=== PATIENT | female | born 1995 | race Hispanic/Latino ===

== ENCOUNTER 2019-01-16 20:41 | Observation (INO) | payer SELFPAY ==
[2019-01-16 20:46] VITALS: BP 120/75; PULSE 82; RESP 14; TEMP 37; O2SAT 100; BMI 27.4
--- NOTE | 2019-01-16 20:46 | ED_ITS ---
HPI - General Adult General Chief complaint: Seizure Stated complaint: had a seizure, swallowed dentures Time Seen by Provider: 01/16/19 20:43 Source: patient Mode of arrival: ambulatory Limitations: no limitations History of Present Illness HPI narrative: Patient is a 23-year-old female with a known history of seizures. she is here in the emergency department with who she states is her cousin. Her cousin states that the patient is visiting the area from [place]. Patient states she has a history of epilepsy. She does have a neurologist. She states that she is on Keppra For her seizures. She also states she has other episodes where she blacks out she states these are separate from her seizures. She states that her neurologist knows about these events. Patient states that her neurologist told her do not worry about them patient states that earlier today she had 1 of her normal grand mal seizures. During the event she swallowed a partial denture for her front 2 teeth. She states that after she woke from the seizure she went into the bathroom to make herself throw up because she knew that she swallowed the partial. She states she did throw up and there was stomach contents however no denture. She states there is no metal portion of the dentures. She states that portion has broken off. She states that is just plastic remaining. Since the event she has had bilateral upper chest pain. She states that it hurts for her to swallow. She states that she is taking her seizure medications but did not take them today. Related Data Home Medications Medication Instructions Recorded Confirmed ferrous gluconate 236 mg PO #0 05/27/16 lacosamide [Vimpat] 50 mg PO BID 01/17/19 01/17/19 levetiracetam [Keppra] 750 mg PO BID 01/17/19 01/17/19 Previous Rx's Medication Instructions Recorded sulfamethoxazole-trimethoprim 1 tab PO BID 5 Days #0 tab 05/27/16 Allergies Allergy/AdvReac Type Severity Reaction Status Date / Time No Known Drug Allergies Allergy Verified 01/16/19 20:49 Review of Systems Constitutional Denies fever(s) and Denies headache(s) Eyes Denies blurry vision ENT Ears, Nose, Mouth, and Throat: Denies vertigo and Denies headache(s) Comments: Hurts to swallow Cardiovascular Reports chest pain and Reports dyspnea Respiratory Denies cough and Reports dyspnea Gastrointestinal Gastrointestinal: Denies abdominal pain, Denies change in stool character and Denies vomiting Comments: States that it hurts to swallow Genitourinary Denies dysuria and Denies vaginal discharge Musculoskeletal Denies abnormal gait, Denies back pain, Denies myalgias and Denies arthralgias Integumentary/Breasts Denies rash Neurologic Denies abnormal gait, Denies behavioral changes, Denies vertigo and Denies headache(s) Psychiatric Denies behavioral changes Hematologic/Lymphatic Denies easy bleeding and Denies easy bruising Allergic/Immunologic Denies urticaria [facility] Medical History Epilepsy (Acute) Social History household members: family Smoking Status: Former smoker alcohol intake: current Social History household members: family Smoking Status: Former smoker alcohol intake: current Exam Initial Vital Signs Initial Vital Signs: Vital Signs Temperature 98.6 F 01/16/19 20:46 Pulse Rate 82 01/16/19 20:46 Respiratory Rate 14 01/16/19 20:46 Blood Pressure 120/75 01/16/19 20:46 Pulse Oximetry 100 01/16/19 20:46 Const General: cooperative, No comfortable (Uncomfortable), well developed, well groomed and No acute distress Orientation: alert, awake and oriented x3 HENMT Head: normal to inspection and normocephalic Teeth and gingiva: other (Missing 2 front teeth) Chest Chest: normal inspection of the chest Resp Effort & Inspection: normal respiratory effort Auscultation: clear to auscultation bilaterally Cardio Rate: regular rate Rhythm: regular rhythm Pulses: radial pulses present GI Inspection: non-distended Palpation: soft, No firm and No tender Skin Lesions: no lesions Rashes: no rashes Neuro General: alert, awake and oriented x3 Cognition: normal cognition Speech: speech normal Motor: muscle tone normal throughout Sensory Exam: no sensory deficits noted Extrem General: normal to inspection and capillary refill normal Psych Appearance: grossly normal and well kempt Scores GCS Jim coma scale eye opening: Spontaneous Jim coma scale verbal response: Orientated [place] coma scale motor response: Obey commands Jim coma scale total score: 15 Nexus Score for C-Spine Focal Neurologic deficit present: No Midline spinal tenderness present: No Altered level of conciousness present: No Intoxication present: No Distracting Injury Present: No Nexus Criteria for C-spine: 0 Course Orders Ordered: ED Orders 01/16/19 20:49 XR chest 1V Stat 01/16/19 20:59 XR abdomen 1V Stat 01/16/19 21:25 Basic Metabolic Panel Stat Complete Blood Count AUTO DIFF Stat Test Serum,Qual Stat Prolactin Stat 01/16/19 22:09 CT chest wo con Stat 01/17/19 01:09 Consult to General Surgery Routine Sodium Chloride (Normal Saline 0.9%) 1,000 mls @ 125 mls/hr IV CONT FATEMEH Last Admin: 01/17/19 02:21 Dose: 125 mls/hr Influenza Virus Vaccine (Flu Vaccine) 0.5 ml IM .ONCE ONE Stop: 01/17/19 09:01 Morphine Sulfate (Morphine) 2 mg IV Q4HR PRN PRN Reason: Pain, Mild (1-3) Ondansetron HCl (Zofran) 4 mg IV Q4HR PRN PRN Reason: Nausea And Vomiting Discontinued Medications Levetiracetam 1,500 mg/ Sodium (Chloride) 115 mls @ 460 mls/hr IV NOW ONE Stop: 01/17/19 00:52 Last Infusion: 01/17/19 02:00 Dose: 0 mls/hr Admin: 01/17/19 01:40 Dose: 460 mls/hr Morphine Sulfate (Morphine) 4 mg IV NOW ONE Stop: 01/17/19 00:10 Last Admin: 01/17/19 00:27 Dose: 4 mg Vital Signs - 8 hr 01/16/19 20:46 01/16/19 21:34 01/16/19 21:50 Temperature 98.6 F Pulse Rate 82 70 61 Respiratory Rate 14 17 14 Blood Pressure 120/75 Blood Pressure [Right Arm] 120/56 L 120/56 L Pulse Oximetry 100 100 100 01/16/19 23:00 01/17/19 01:00 Temperature Pulse Rate 60 66 Respiratory Rate 16 14 Blood Pressure Blood Pressure [Right Arm] 109/66 114/70 Pulse Oximetry 100 100 Medical Decision Making Lab Data Lab results reviewed: Yes I reviewed the patient's lab results. Result diagrams: 01/16/19 21:25 01/16/19 21:25 Lab Results 01/16/19 01/16/19 01/16/19 Range/Units 21:25 21:25 21:25 WBC 12.5 H (4.5-11.0) X10^3/uL RBC 4.75 (4.0-5.2) X10^6/uL Hgb 12.4 (12.0-16.0) g/dL Hct 39.6 (36-46) % MCV 83.2 (80-100) fL MCH 26.2 (26-34) PG MCHC 31.4 (30-36) % RDW 15.6 H (11.6-14.8) % Plt Count 248 (150-400) X10^3/uL Neut % (Auto) 73.7 (50-75) % Lymph % (Auto) 16.5 L (25-40) % [place] % (Auto) 8.4 (3-14) % Eos % (Auto) 0.9 L (2-4) % Baso % (Auto) 0.5 (0-2) % Neut # (Auto) 9200 H (3636-6164) /uL Lymph # (Auto) 2100 (6171-4247) /uL [place] # (Auto) 1100 H (0-900) /uL Eos # (Auto) 100 (0-450) /uL Baso # (Auto) 100 (0-100) /uL Sodium 144 (137-145) mmol/L Potassium 4.4 (3.4-5.1) mmol/L Chloride 111 H (98-107) mmol/L Carbon Dioxide 25 (22-32) mmol/L BUN 11 (7-17) mg/dL Creatinine 0.60 (0.52-1.04) mg/dL Estimated GFR > 60.0 (>60) mL/min BUN/Creatinine Ratio 18.3 (6-22) Glucose 109 H (70-100) mg/dL Calcium 9.0 (8.4-10.2) mg/dL Prolactin 37.7 H (3.0-18.6) ng/mL Serum , Qual Negative (Negative) Imaging Data Chest x-ray: Radiologist's impression: [address] [address] XRay Report Signed Patient: Roxy Scottnicola#: [id number] : 1995Acct:[id number] Age/Sex: 23 / FDate of Service: 01/16/19 Loc: ED Accession Number: [id number] Procedure: XR chest 1V Ordering Provider: Zachary Pickett D.O. PROCEDURE: XR CHEST 1V INDICATIONS: denture appliance stuck in chest TECHNIQUE: One view of the chest was acquired. COMPARISON: None. FINDINGS: Surgical changes and devices: None. Lungs and pleura: Lungs are clear. No pleural effusions or pneumothorax. Mediastinum: Mediastinal contours appear normal. Heart size is normal. Bones and chest wall: No suspicious bony lesions. Overlying soft tissues appear unremarkable. IMPRESSION: No acute cardiopulmonary findings. Dictated by: Deirdre Cuba M.D. on 01/16/2019 at 21:08 Approved by: Deirdre Cuba M.D. on 01/16/2019 at 21:08 Abdominal x-ray: Radiologist's impression: [place] [address] XRay Report Signed Patient: Roxy Scott#: [id number] : 1995Acct:[id number] Age/Sex: 23 / FDate of Service: 01/16/19 Loc: ED Accession Number: [id number] Procedure: XR abdomen 1V Ordering Provider: Zachary Pickett D.O. PROCEDURE: XR ABDOMEN 1V INDICATIONS: Eval for ingested foreign body TECHNIQUE: One view of the abdomen acquired. COMPARISON: None. FINDINGS: Surgical changes and devices: None. Bowel: Bowel gas pattern is normal. Soft tissues: No suspicious abdominal calcifications. Visualized solid organ contours appear normal in size. Bones: No suspicious bony lesions. IMPRESSION: No unexpected radiopaque foreign body visualized. No acute intra- abdominal findings. Dictated by: Deirdre Cuba M.D. on 01/16/2019 at 21:17 Approved by: Deirdre Cuba M.D. on 01/16/2019 at 21:18 CT scan - chest: Radiologist's impression: Read by Renal radiology Minimal hyperdense septations in the proximal esophagus, question mucosal injury or bleeding. This could be due to passage of a foreign body, not identified in the esophagus or upper abdomen. No evidence of esophageal perforation or mediastinal air. MDM Narrative Medical decision making narrative: Patient had no seizure activity here in the emergency department however she did have 2 episodes of her ?blacking out? 1 of which was witnessed by nursing staff. This was not associated with seizure-like activity. Patient states that this is not new for her. She did state that her neurologist knows about these events. I do not have her neurologist notes available for review. The chest x-ray in the abdominal x-ray shows no signs of ingested or aspirated foreign body. Is a somewhat difficult to interpret because she stated that there was no metal on the partial denture only a plastic material which I am concerned is not radiopaque. I did discuss the case with pulmonology at [facility] for concerns that the patient could potentially need a bronchoscopy given her reported shortness of breath. The milk delivery driver recommended a CT noncontrast of the chest to evaluate. This was obtained. Re sults of this showed the hyperdense septations in the proximal esophagus. I discussed this with Dr. Hines with General surgery who recommended obtaining a Gastrografin swallow. After consultation with on-call Radiology I am unable to obtain a Gastrografin swallow given the time of day. I discussed this again with General surgery and after this discussion will plan to admit the patient overnight to continue with airway watch. Will make the patient NPO with the plan of obtaining the Gastrografin swallow in the morning. This was ordered through the emergency department however the admitting provider will follow-up on the results of this. Patient was given 1500 mg of Keppra IV. She was informed of the admission to the hospital. She expressed understanding and agreement. Discharge Plan Departure Patient Disposition: Admitted as Observation Clinical Impression: Seizure Foreign body ingestion Qualifiers: Encounter type: initial encounter Qualified Code(s): T18.9XXA - Foreign body of alimentary tract, part unspecified, initial encounter Discharge Date/Time: 01/17/19 02:00 Interventions: ED Discharge Assessment Last Done: 01/17/19 01:49 Admit Date/Time: 01/17/19 01:13 Admit Provider: Mauricio Hines
--- NOTE | 2019-01-16 20:49 | DI.RAD.S_ITS ---
PROCEDURE: XR CHEST 1V INDICATIONS: denture appliance stuck in chest TECHNIQUE: One view of the chest was acquired. COMPARISON: None. FINDINGS: Surgical changes and devices: None. Lungs and pleura: Lungs are clear. No pleural effusions or pneumothorax. Mediastinum: Mediastinal contours appear normal. Heart size is normal. Bones and chest wall: No suspicious bony lesions. Overlying soft tissues appear unremarkable. IMPRESSION: No acute cardiopulmonary findings. Dictated by: Deirdre Cuba M.D. on 01/16/2019 at 21:08 Approved by: Deirdre Cuba M.D. on 01/16/2019 at 21:08
--- NOTE | 2019-01-16 20:59 | DI.RAD.S_ITS ---
PROCEDURE: XR ABDOMEN 1V INDICATIONS: Eval for ingested foreign body TECHNIQUE: One view of the abdomen acquired. COMPARISON: None. FINDINGS: Surgical changes and devices: None. Bowel: Bowel gas pattern is normal. Soft tissues: No suspicious abdominal calcifications. Visualized solid organ contours appear normal in size. Bones: No suspicious bony lesions. IMPRESSION: No unexpected radiopaque foreign body visualized. No acute intra-abdominal findings. Dictated by: Deirdre Cuba M.D. on 01/16/2019 at 21:17 Approved by: Deirdre Cuba M.D. on 01/16/2019 at 21:18
[2019-01-16 21:34] VITALS: BP 120/56; PULSE 70; RESP 17; O2SAT 100
[2019-01-16 21:37] LABS: Add Manual Diff / Slide Review NO; Basophils Absolute Auto 100 /uL (0-100); Basophils Percent Auto 0.5 % (0-2); Eosinophils Absolute Auto 100 /uL (0-450); Eosinophils Percent Auto 0.9 % (2-4); Hematocrit 39.6 % (36-46); Hemoglobin 12.4 g/dL (12.0-16.0); Lymphocytes Absolute Auto 2100 /uL (1100-4500); Lymphocytes Percent Auto 16.5 % (25-40); Mean Corpuscular HGB Conc 31.4 % (30-36); Mean Corpuscular Hemoglobin 26.2 PG (26-34); Mean Corpuscular Volume 83.2 fL (80-100); Monocytes Absolute Auto 1100 /uL (0-900); Monocytes Percent Auto 8.4 % (3-14); Neutrophils Absolute Auto 9200 /uL (1500-7000); Neutrophils Percent Auto 73.7 % (50-75); Platelet Count 248 X10^3/uL (150-400); Red Blood Cell Count 4.75 X10^6/uL (4.0-5.2); Red Cell Distribution Width 15.6 % (11.6-14.8); White Blood Cell Count 12.5 X10^3/uL (4.5-11.0)
[2019-01-16 21:38] LABS: HEMOLYSIS < 15 (0-50)
[2019-01-16 21:43] LABS: BUN Creatinine Ratio 18.3 (6-22); Blood Urea Nitrogen 11 mg/dL (7-17); Carbon Dioxide 25 mmol/L (22-32); Chloride 111 mmol/L (98-107); Estimated Glomerular Filt Rate > 60.0 mL/min (>60); Glucose 109 mg/dL (70-100); Potassium 4.4 mmol/L (3.4-5.1); Sodium 144 mmol/L (137-145)
[2019-01-16 21:50] VITALS: BP 120/56; PULSE 61; RESP 14; O2SAT 100
[2019-01-16 21:52] LABS: Pregnancy Test Serum,Qual Negative (Negative)
[2019-01-16 22:06] LABS: Prolactin 37.7 ng/mL (3.0-18.6)
--- NOTE | 2019-01-16 22:09 | DI.CT.S_ITS ---
PROCEDURE: CT CHEST WO CON INDICATIONS: Eval for possible aspirated foreign body TECHNIQUE: Noncontrast 5 mm thick sections acquired from the pulmonary apices to the posterior costophrenic angles. 7 mm thick coronal and sagittal MIP reformats were then acquired. For radiation dose reduction, the following was used: automated exposure control, adjustment of mA and/or kV according to patient size. COMPARISON: [facility], CR, XR CHEST 1V, 01/16/2019, 20:57. FINDINGS: Image quality: Excellent. Lungs and pleura: No acute air space opacities. No pleural effusions or pneumothorax. Central and peripheral airways are patent and normal in caliber. Mediastinum: Heart size is normal. No pericardial effusion. No mediastinal adenopathy by size criteria. Thoracic aorta and central pulmonary arteries are normal in size. Esophagus is normal in caliber and contains high density material at the junction of the upper and middle thirds of the esophagus, best seen centered on series 2 image 41. No hiatal hernia. Bones and chest wall: No suspicious bony lesions. No vertebral body compression fractures. No axillary or supraclavicular adenopathy by size criteria. Thyroid gland is not well-seen by this noncontrast technique. Abdomen: Visualized upper abdominal solid organs and bowel loops appear normal in the absence of contrast. IMPRESSION: The high density material seen within the junction of the [id number] thirds of the esophagus may represent the reported ingested foreign body and followup with esophagram is scheduled for this morning. Dictated by: Kurt Johnson M.D. on 01/17/2019 at 8:10 Approved by: Kurt Johnson M.D. on 01/17/2019 at 8:13
--- NOTE | 2019-01-16 22:40 | PC.NURSE ---
Pt having another blackout. Episode lasted approximately 4 min until she was completely recovered and back to baseline. She was incontinent of urine and kicking her legs around trying to remove her IV and pulse oximeter. Eyes were open and she was saying ew and saying words that did not make sense. Unable to answer questions about her children's names and birthdays during episode. Notified provider. No evidence of injury or airway compromise. Pt's bed is visible from nurses station and family is at bedside. Seizure precautions remain in place.
[2019-01-16 23:00] VITALS: BP 109/66; PULSE 60; RESP 16; O2SAT 100
[2019-01-17] VITALS (21 sets, daily range): BP systolic 84–125; BP diastolic 45–78; PULSE 53–91; RESP 11–18; TEMP 36–36.8; O2SAT 95–100; BMI 27.4; BMI 27.8
[2019-01-17] MEDS: MORPHINE 4 MG/ML INJ IV (00:27)
[2019-01-17] MEDS: levETIRAcetam 1,500 MG in SODIUM CHLORIDE 0.9% 100 ML 460 ML IV (01:40)
[2019-01-17] MEDS: SODIUM CHLORIDE 0.9% 1,000 ML 125 ML IV ×3 (02:21→10:49)
[2019-01-17] MEDS: ONDANSETRON 4 MG/2 ML INJ IV ×2 (02:35→10:10)
--- NOTE | 2019-01-17 02:51 | PC.ADMIT ---
Addendum entered by Kendra Shi R.N. 01/17/19 05:59: States pain is 6/10 currently and tolerable. Has not voided since admission but states she was incontinent during a black out while down in ER earlier. Addendum entered by Kendra Shi R.N. 01/17/19 04:45: States it hurts to swallow and rates severity as 8/10 in chest; medicated with Morphine and warm blanket applied. Original Note: Patient admitted to room 212 from ER per stretcher; cousin accompanied patient. Is alert and oriented. Breath sounds CTA but diminished at bases; RA sat 96%. Denies SOB. Is having chest pain related to possible foreign body (reports she swallowed her partial during recent seizure). Pain is 6/10 at rest but increases to 8/10 with deep breathing; had Morphine in ER at 0030 and informed patient she can have q4h. Verbalizes pain is tolerable. HRR; on telemetry and reading upon admission was SR. Complains of nausea so medicated with Zofran. BT present and abdomen is soft. Denies dysuria, frequency or urgency. Able to move self in bed. Seizure pads placed on bed and patient instructed to call for assistance when needing to get out of bed. Reports recent fall during a recent seizure so fall risk score is high and bed alarm is activated; patient verbalizes understanding. Skin is without bruising, redness, rashes or open areas. Oriented to bed controls and call light. Informed she is NPO and provided glycerin swabs for mouth moisture. [address] Admission Note: The patient,Roxy Scott,23 y/o, was given written information regarding hospital policies, unit procedures and contact persons. Patient's smoking status: Former smoker. Vital Signs - 8 hr 01/16/19 20:46 01/16/19 21:34 01/16/19 21:50 Temperature 98.6 F Pulse Rate 82 70 61 Respiratory Rate 14 17 14 Blood Pressure 120/75 Blood Pressure [Right Arm] 120/56 L 120/56 L Pulse Oximetry 100 100 100 01/16/19 23:00 01/17/19 01:00 01/17/19 02:05 Temperature 97.7 F Pulse Rate 60 66 80 Respiratory Rate 16 14 18 Blood Pressure 125/75 Blood Pressure [Right Arm] 109/66 114/70 Pulse Oximetry 100 100 96
[2019-01-17] MEDS: MORPHINE 2 MG/ML INJ IV (04:41)
--- NOTE | 2019-01-17 07:06 | DI.RAD.S_ITS ---
PROCEDURE: FL BARIUM SWALLOW INDICATIONS: MUST BE Gastrographin - eval for esoph perf, forign body COMPARISON: [facility], CT, CT CHEST WO MAC, 01/16/2019, 22:15. FINDINGS: Function: There is normal esophageal peristalsis. No elicited gastroesophageal reflux. There is a foreign body within the upper esophagus near the junction of the upper and middle thirds, with a craniocaudad length of approximately 3.7 cm and a transverse dimension of up to 1.5 cm. This is non-mobile. It is not visible on the initial fluoroscopic imaging through the same area and therefore does not appear to contain metallic components. Morphology: Air-contrast images demonstrate normal mucosal morphology. Single contrast views show no esophageal strictures, extrinsic mass effects, or diverticula. Limited images of the stomach demonstrate normal appearance. IMPRESSION: 1. Foreign body within the upper esophagus near the junction of the upper and middle thirds. This is the same area of the esophagus where a foreign body is visible on CT scanning. It has no internal metallic components.it is quite radiolucent and therefore not visible on plain film imaging. 2. No sign of esophageal perforation. No aspiration seen. Esophageal motility is normal. Dictated by: Kurt Johnson M.D. on 01/17/2019 at 9:01 Approved by: Kurt Johnson M.D. on 01/17/2019 at 9:05
--- NOTE | 2019-01-17 08:18 | PC.NURSE ---
Patient was picked up for FL barium swallow test. Patient reports she is tired but denies pain or complaint at this time.
[2019-01-17] MEDS: HYDROMORPHONE 2 MG INJ 1 MG IV (09:05)
--- NOTE | 2019-01-17 10:07 | P.HP_ITS ---
History of Present Illness Date Patient Seen: 01/17/19 Time Patient Seen: 06:30 Chief complaint: had a seizure, swallowed dentures Narrative: 23-year-old woman vacationing from [place] up presents after swallowing a partial denture. Patient has a history of a seizure disorder and infrequently has complex generalized seizure activity. At approximately 7:00 p.m. last night patient had a seizure and swallowed her partial denture which contains 4 teeth. Upon recovering she felt mid esophageal pain which was worsened with swallowing. She was able to manage her secretions however. Unfortunately there is no metallic components to her partial denture. Initial x-ray in the emergency depa rtment failed to demonstrate the dentures location however CT scan demonstrated material in the midesophagus just above the level of the aortic arch consistent with the site of patient discomfort. Careful inspection of the imaging revealed no air within the mediastinum and intact fat planes around the esophagus. Patient then went on to receive a Gastrografin swallow -this confirmed the absence of an esophageal perforation. There was a persistent filling at the same area consistent with a foreign body occupying the lumen. This morning patient continues to field discomfort -and their are plans for EGD for extraction. No further seizure activity noted Patient History Medical History (Updated 01/17/19 @ 10:03 by Mauricio Hines MD) Anemia (Acute) Epilepsy (Acute) Social History household members: family Smoking Status: Former smoker alcohol intake: current Family & Social History Social History: household members family Prior Living Arrangements House Safety & Behavioral: Feels Safe in Current Yes Environment Been Physically Hurt or No Threatened By a Person Suicidal Ideation Description None Tobacco & Substance use: Tobacco type cannabis/marijuana Smoking Status Former smoker alcohol intake current alcohol intake frequency a few times a week Substance Use Type marijuana Meds Home Medications Medication Instructions Recorded Confirmed Type lacosamide [Vimpat] 50 mg PO BID 01/17/19 01/17/19 History levetiracetam [Keppra] 750 mg PO BID 01/17/19 01/17/19 History Allergies Allergy/AdvReac Type Severity Reaction Status Date / Time No Known Drug Allergies Allergy Verified 01/16/19 20:49 Review of Systems Constitutional Constitutional: Denies fever(s) Eyes Eyes: Denies bulging eyes ENT Ears, Nose, Mouth, and Throat: No lip swelling Cardiovascular Cardiovascular: Denies generalize swelling Respiratory Respiratory: Denies stridor Gastrointestinal Gastrointestinal: Denies coffee ground emesis Musculoskeletal Musculoskeletal: Denies loss of height Integumentary/Breasts Skin/Breast: Denies wounds Neurologic Neurologic: Denies abnormal speech and Denies confusion Psychiatric Psychiatric: Denies confusion Endocrine Endocrine: Denies deepening of the voice Hematologic/Lymphatic Hematologic/Lymphatic: Denies lymphadenopathy Allergic/Immunologic Allergic/Immunologic: Denies lip swelling Exam Vital Signs (past 8 hours): - 01/17/19 02:05 01/17/19 04:42 01/17/19 07:40 Temperature 97.7 F 97.6 F 98.2 F Pulse Rate 80 53 L 60 Respiratory Rate 18 18 16 Blood Pressure 125/75 100/63 111/78 Pulse Oximetry 96 98 100 01/17/19 09:31 Temperature 97.5 F L Pulse Rate 68 Respiratory Rate 16 Blood Pressure 117/75 Pulse Oximetry 100 Oxygen Delivery Method Room Air Const General: cooperative and healthy appearing Orientation: alert [facility] Head: normal to inspection Nose: nares normal Mouth: oral mucosae normal and lip normal Eyes Eyelids: eyelids normal Conjunctivae: conjunctivae normal Sclera: sclerae normal Neck Neck: supple and other (No thyromegally) Chest Chest: other (LCTAB , regular respiratory effort) Cardio Rhythm: regular rhythm Heart Sounds: S1 normal, S2 normal, no gallops, no murmurs and no rubs GI Other: Abdomen soft nontender nondistended Skin General: no rashes or lesions noted Neuro General: alert and awake Psych Appearance: grossly normal Affect: normal affect Objective Labs Result Diagrams: 01/16/19 21:25 01/16/19 21:25 Labs: Laboratory Results - last 24 hr 01/16/19 01/16/19 01/16/19 21:25 21:25 21:25 WBC 12.5 H RBC 4.75 Hgb 12.4 Hct 39.6 MCV 83.2 MCH 26.2 MCHC 31.4 RDW 15.6 H Plt Count 248 Neut % (Auto) 73.7 Lymph % (Auto) 16.5 L [place] % (Auto) 8.4 Eos % (Auto) 0.9 L Baso % (Auto) 0.5 Neut # (Auto) 9200 H Lymph # (Auto) 2100 [place] # (Auto) 1100 H Eos # (Auto) 100 Baso # (Auto) 100 Sodium 144 Potassium 4.4 Chloride 111 H Carbon Dioxide 25 BUN 11 Creatinine 0.60 Estimated GFR > 60.0 BUN/Creatinine Ratio 18.3 Glucose 109 H Calcium 9.0 Prolactin 37.7 H Serum , Qual Negative Assessment & Plan Assessment & Plan narrative: 23-year-old woman with partial denture foreign body impacted just above the level of the aortic arch within the midportion of the esophagus. She does not have an esophageal perforation as demonstrated by Gastrografin swallow as well as chest CT. Plan to remove via EGD with sedation. Patient has a somewhat elevated risk of aspiration given her recent swallow study with Gastrografin, however given the risk of erosion into the esophagus I do not think it is prudent to wait further. Risks of procedure including over sedation, aspirate, esophageal injury all discussed All questions answered Patient ready to proceed Quality VTE Deep Vein Thrombosis/Pulmonary Embolism Present on Admission: No
[2019-01-17] MEDS: diphenhydrAMINE 50 MG/ML VIAL IV (10:53)
[2019-01-17] MEDS: METOCLOPRAMIDE 10 MG/2 ML INJ IV (10:54)
[2019-01-17] MEDS: fentaNYL 250 MCG/5 ML INJ IV (10:55)
[2019-01-17] MEDS: MIDAZOLAM 5 MG/5 ML VIAL IV (10:56)
[2019-01-17] MEDS: TETRACAINE/BENZOCAINE/BUTAMBEN (CETACAINE) BOTTLE 1 SPRAY TOP (10:57)
--- NOTE | 2019-01-17 11:12 | CM.DANOTE ---
Addendum entered by Nicol Steele LPN 01/17/19 14:01: Pt just arrived to the floor. She is lying with eyes closed. Dr. Huber Hines was in process of updating KAREN Flores re the specifics of the procedure. He has ok'd pt for d/c later this afternoon. KAREN Flores confirms that Gopi will be here to take her home after work. He is expected about 1530. Mark notes that pt had expressed no concerns re the plan to go home later today but for now she is resting. Original Note: Discharge Planning/Care Management DCP: assessment: case received, EMR reviewed and went to room to check in with pt. Found that pt has already been taken to surgery for the EGD with plan to extract partial denture from esophagus. Pt is a 23 year old female who admitted early this morning after having a seizure and realizing that she swallow denture material. MRI showed this was stuck in the upper esophagus. Surgeon: Dr. Huber Hines PCP: unknown but documentation states that pt sees a neurologist in [place] for her his of seizure disorder and is on medication for same. Her insurance is being sorted out by [facility]. Pt was seen at ER 2x in 2016 with seizures. Prime is listed but unclear if active. [facility] also mentions a medicaid plan from [place]. Pt per report is here visiting family and her cousin Gopi Perez lists his cell: [phone]. Will check in later when procedure is completed and follow prn for any needs at d/c. CM Discharge Assessment Start: 01/17/19 11:11 Freq: Status: Active Protocol: Document 01/17/19 11:11 ITV (Rec: 01/17/19 11:12 ITV [id number]) Discharge Planning Assessment Advance Directives? No History Provided By Medical Record Prior Living Arrangements House Household Members family Whiteboard Updated in Patient Room with Yes name and ext. # of Ski Topper Review Status In Process
--- NOTE | 2019-01-17 11:43 | P.OP.ENDO_ITS ---
Operative Date/Time/Diagnoses Date of procedure: 01/17/19 Time of procedure: 11:29 Pre-op diagnosis: Impacted esophageal foreign body Post-op diagnosis: same Procedure & Clinicians Study performed: EGD Removal of esophageal foreign body Same procedure as scheduled: Yes Indications: 23-year-old female with a history of seizure disorder in the setting of a generalized complex seizure yesterday evening she swallowed the upper partial denture containing 4 upper incisors. She felt a foreign body sensation or midesophagus. Barium swallow confirmed absence of esophageal perforation but notable filling defect in the midesophagus just superior to the aortic arch. Surgeon: Mauricio Hines Procedure Notes SCOAP/Timeout: completed Procedure in detail: Patient was brought to the endoscopy suite. Her posterior pharynx with anesthetized with benzocaine spray. She was given 8 of Zofran and 10 of Reglan both IV. She was then sedated with initially 4 mg of midazolam and 50 of fentanyl. A bite block was placed. Without difficulty the endoscope was passed into the proximal esophagus. At the midesophagus the aspirated foreign body consistent with a partial denture was identified. This was snared. The endoscope was then slowly withdrawn. However at the level of the cricopharyngeus patient began to cough. She was sedated with additional 4 mg of midazolam and 50 mcg fentenyl. This was still not adequate to safely passed the form body through her upper airway -due to cough. An additional 50 of fentanyl was given. At this point she became apneic -the foreign body was released/had already come out of the snare within the proximal esophagus. An oral airway was placed. Mask ventilation was started. Patient was easy to ventilate and sats came up readily. We continued bag vast ventilate her without difficulty. Anesthesia was called. We discussed that given the need for fairly significant sedation to bring the large object through her hypopharynx and recent episode of apnea -ETT would be extremely helpful. I considered pushing the foreign body into the stomach -but given its size I was concerned for a later ileal obstruction. Anesthesiology graciously intubated the patient without difficulty, she was started on propofol drip. Anesthesia involvement was essential given the balance between apnea and adequate sedation to remove the foreign body through the highly sensitive area of the hypopharynx and cricopharyngeal muscle. The EGD was then again passed into the esophagus no foreign body was identified however upon entry into the stomach was in the gastric body. With some difficul ty given the irregular nature of the denture it was snared. We then carefully withdrew the scope with snared denture up through the airway. As soon as we had past cricopharyngeus and were in the hypopharynx this snare released. The hypopharynx was searched endoscopically as well as using intubating Jason in Ying blades. The denture was not identified. It seemed likely that it had been pushed into the nasopharynx. The nasogastric tube was then advanced down both nares while viewing the oropharynx with the endoscope. The denture came into view and was seated at the level of the epiglottis. Using a mac 4 blade a direct view was taken of the hypopharynx and the denture was grab successfully with a [place] forceps and removed for the patient. The denture was inspected it was intact. The esophagus was rescoped -there were some mucosal abrasions but no significant damage to esophagus. Patient was extubated without incident Scope withdrawal time: Na Impression: Impacted foreign body within the midportion of the esophagus -now removed Plan for aftercare: PACU and then to floor No need for further EGD Follow up: as needed Disposition: Acute Care
--- NOTE | 2019-01-17 12:58 | SUR.PHASEI ---
Partial with patient to room and nurse (Mark) has taken possesion.
--- NOTE | 2019-01-17 13:30 | PM.PN.1 ---
Subjective Date Patient Seen: 01/17/19 Time Patient Seen: 13:30 Interval history: Feeling well after successful extraction of midesophageal impacted foreign body Minimal throat Esophageal/mid chest discomfort much improved Exam Vital Signs (past 8 hours): - 01/17/19 07:40 01/17/19 09:31 01/17/19 11:39 Temperature 98.2 F 97.5 F L 97.3 F L Pulse Rate 60 68 88 Respiratory Rate 16 16 16 Blood Pressure 111/78 117/75 102/63 Pulse Oximetry 100 100 99 01/17/19 11:44 01/17/19 11:49 01/17/19 11:54 Temperature Pulse Rate 90 84 84 Respiratory Rate 14 14 12 Blood Pressure 95/58 L 103/62 99/64 Pulse Oximetry 98 98 95 01/17/19 11:59 01/17/19 12:04 01/17/19 12:11 Temperature 96.8 F L Pulse Rate 76 72 71 Respiratory Rate 12 14 11 L Blood Pressure 98/60 99/55 L 84/45 L Pulse Oximetry 100 98 100 01/17/19 12:13 01/17/19 12:18 01/17/19 12:24 Temperature 97.1 F L Pulse Rate 63 68 68 Respiratory Rate 13 12 14 Blood Pressure 88/48 L 90/51 L 90/50 L Pulse Oximetry 100 100 99 01/17/19 12:29 01/17/19 12:55 Temperature 98.0 F Pulse Rate 64 61 Respiratory Rate 14 14 Blood Pressure 92/53 L 101/59 L Pulse Oximetry 100 99 Oxygen Delivery Method Room Air Narrative Exam Narrative: Resting well after recent endoscopy Objective Labs Result Diagrams: 01/16/19 21:25 01/16/19 21:25 Labs: Laboratory Results - last 24 hr 01/16/19 01/16/19 01/16/19 21:25 21:25 21:25 WBC 12.5 H RBC 4.75 Hgb 12.4 Hct 39.6 MCV 83.2 MCH 26.2 MCHC 31.4 RDW 15.6 H Plt Count 248 Neut % (Auto) 73.7 Lymph % (Auto) 16.5 L [place] % (Auto) 8.4 Eos % (Auto) 0.9 L Baso % (Auto) 0.5 Neut # (Auto) 9200 H Lymph # (Auto) 2100 [place] # (Auto) 1100 H Eos # (Auto) 100 Baso # (Auto) 100 Sodium 144 Potassium 4.4 Chloride 111 H Carbon Dioxide 25 BUN 11 Creatinine 0.60 Estimated GFR > 60.0 BUN/Creatinine Ratio 18.3 Glucose 109 H Calcium 9.0 Prolactin 37.7 H Serum , Qual Negative Assessment & Plan Assessment & Plan narrative: 23-year-old female status post endoscopic removal of partial denture from midportion esophagus. Now well Okay to [place] home Quality VTE Deep Vein Thrombosis/Pulmonary Embolism Present on Admission: No
--- NOTE | 2019-01-17 14:12 | PC.NURSE ---
No longer flu season per charge gang weigher, not available.
--- NOTE | 2019-01-17 14:32 | PC.NURSE ---
Patient without complaints, denies pain. up to bathroom without difficulty. declined tylenol. VSS. Waiting for friend to pick her up for discharge.
--- NOTE | 2019-01-17 15:36 | PC.NURSE ---
Discharge instructions reviewed with patient, she states understanding and has no further questions or concerns at this time. Evening shift will complete discharge as patient is waiting for her friend to pick her up. She's tolerating liquids, voided, and denies pain at this time. Seizure and fall precautions maintained. Patient instructed to report questions or concerns to her physician and follow up as needed. Patient states understanding not to wear her denture partial until repaired and fitting correctly.
--- NOTE | 2019-01-17 16:59 | PC.NURSE ---
1700- Pt's sig nif other is here to take pt home. Pt has denture, along with all belongings. All DC instructions have been gone over with pt, and pt verbally reports understanding. VSS. No concerns or questions at this time. Wheelchair to downstairs to exit after eating dinner.
== END 2019-01-17 17:02 | disposition home or self-care (01) ==
LOC: ED 01-17 00:51 → AC 01-17 01:14
PROVIDERS: Admitting Provider Surgery; Emergency Provider Emergency Medicine; Visit Provider Surgery
PROC: 0DJ08ZZ Inspection of Upper Intestinal Tract, Via Natural or Artificial Opening Endoscopic (ICD-10-PCS; CPT 43235; principal; 2019-01-17 09:45)
DX: T18.9XXA Foreign body of alimentary tract, part unspecified, initial encounter (principal); G40.909 Epilepsy, unspecified, not intractable, without status epilepticus; D64.9 Anemia, unspecified
CPT/HCPCS: 43247; 36591; 71045; 71250; 74018; 74220; 80048; 84146; 84703; 85025; 96361; 96365; 96376; 99219; 99283; 99284; G0378; J0330; J1170; J1200; J1953; J2250; J2270; J2405; J2704; J2765; J3010

== ENCOUNTER 2019-02-04 12:12 | Inpatient (IN) | payer SELFPAY ==
[2019-01-17 02:00] VITALS: BMI 27.4
[2019-02-04] VITALS (13 sets, daily range): BP systolic 97–131; BP diastolic 56–82; PULSE 68–86; RESP 12–20; TEMP 35.4–36.9; O2SAT 97–100; BMI 27.6; BMI 27.3
--- NOTE | 2019-02-04 12:37 | DI.RAD.S_ITS ---
PROCEDURE: XR CHEST 1V INDICATIONS: altered mental status TECHNIQUE: One view of the chest was acquired. COMPARISON: [facility], CR, XR CHEST 1V, 01/16/2019, 20:57. FINDINGS: Surgical changes and devices: None. Lungs and pleura: Lungs are clear. No pleural effusions or pneumothorax. Mediastinum: Mediastinal contours appear normal. Heart size is normal. Bones and chest wall: No suspicious bony lesions. Overlying soft tissues appear unremarkable. IMPRESSION: No acute cardiopulmonary process is evident. Dictated by: Jaquan Rose M.D. on 02/04/2019 at 13:02 Approved by: Jaquan Rose M.D. on 02/04/2019 at 13:05
[2019-02-04 12:49] LABS: Add Manual Diff / Slide Review NO; Basophils Absolute Auto 100 /uL (0-100); Basophils Percent Auto 0.8 % (0-2); Eosinophils Absolute Auto 0 /uL (0-450); Eosinophils Percent Auto 0.1 % (2-4); Hematocrit 39.9 % (36-46); Hemoglobin 13.3 g/dL (12.0-16.0); Lymphocytes Absolute Auto 1600 /uL (1100-4500); Lymphocytes Percent Auto 18.4 % (25-40); Mean Corpuscular HGB Conc 33.4 % (30-36); Mean Corpuscular Hemoglobin 26.8 PG (26-34); Mean Corpuscular Volume 80.3 fL (80-100); Monocytes Absolute Auto 1100 /uL (0-900); Monocytes Percent Auto 12.4 % (3-14); Neutrophils Absolute Auto 6000 /uL (1500-7000); Neutrophils Percent Auto 68.3 % (50-75); Platelet Count 279 X10^3/uL (150-400); Red Blood Cell Count 4.97 X10^6/uL (4.0-5.2); Red Cell Distribution Width 15.2 % (11.6-14.8); White Blood Cell Count 8.8 X10^3/uL (4.5-11.0)
--- NOTE | 2019-02-04 12:54 | ED.SEIZURE ---
HPI - Seizure General Chief Complaint: Seizure Stated Complaint: Altered mental state, headache,seizures Time Seen by Provider: 02/04/19 12:41 Source: patient Mode of arrival: ambulatory Limitations: no limitations History of Present Illness HPI Narrative: Patient is a 23-year-old female with history of epilepsy presenting with altered mental status. She actually had a seizure on this 7th and she actually swallowed some dentures. Her cousin is with her he states that her last dose of Keppra was about a week ago and she has had 2 seizures this week. He has noted some odd behavior this week as well she seems to be more paranoid she states that she is hearing voices she says sometimes they tell her to kill herself but there is no specific plans. She really will look at me while I am talking to her. Cousin took a video of her paranoid it yesterday. Apparently she feels like someone is after her but this particular person lives in [place] and is not here. MD complaint: seizure and other (Paranoia) Seizure History: known seizure disorder Place: home Related Data Home Medications Medication Instructions Recorded Confirmed Vimpat 50 mg PO BID 01/17/19 02/04/19 levetiracetam [Keppra] 1,500 mg PO BID 01/17/19 02/04/19 ibuprofen 1 dose PO PRN PRN 02/04/19 02/04/19 Allergies Allergy/AdvReac Type Severity Reaction Status Date / Time No Known Drug Allergies Allergy Verified 01/16/19 20:49 Review of Systems Review of Systems ROS Unobtainable: All systems reviewed & are unremarkable except as noted in HPI and below Constitutional Denies chills, Denies fever(s), Denies lethargy and Denies weakness Eyes Denies change in vision, Denies eye discharge, Denies irritation and Denies loss of vision Cardiovascular Denies chest pain, Denies irregular heart rhythm, Denies lightheadedness, Denies palpitations, Denies dyspnea, Denies dyspnea on exertion and Denies orthopnea Respiratory Denies cough, Denies dyspnea, Denies dyspnea on exertion and Denies wheezing Gastrointestinal Gastrointestinal: Denies abdominal pain, Denies change in bowel habits, Denies diarrhea, Denies nausea and Denies vomiting Genitourinary Denies hematuria, Denies flank pain, Denies urinary incontinence and Denies urinary urgency Musculoskeletal Denies back pain, Denies muscle weakness, Denies numbness and Denies tingling Integumentary/Breasts Denies pruritus, Denies erythema, Denies rash and Denies wounds Neurologic Reports behavioral changes, Reports confusion, Denies loss of vision, Reports memory loss, Denies numbness, Reports convulsions, Reports seizure-like activity, Denies tingling and Denies weakness Psychiatric Reports behavioral changes, Reports confusion, Reports auditory hallucinations, Reports irritability, Reports memory loss, Reports mood swings and Reports hallucinations Endocrine Denies palpitations Allergic/Immunologic Denies wheezing [facility] Medical History Anemia (Acute) Epilepsy (Acute) Social History household members: family Smoking Status: Former smoker alcohol intake: current Social History household members: family Smoking Status: Former smoker alcohol intake: current Exam Initial Vital Signs Initial Vital Signs: Vital Signs Pulse Rate 80 02/04/19 12:25 Respiratory Rate 12 02/04/19 12:25 Blood Pressure 131/82 02/04/19 12:25 Pulse Oximetry 100 02/04/19 12:25 GENERAL: Well-appearing, well-nourished and in no acute distress. HEENT: Head atraumatic,EOMI, pupils reactive, face symmetric, moist mucous membranes CARDIOVASCULAR: Regular rate and rhythm without murmurs, rubs or gallops. RESPIRATORY: Breath sounds equal bilaterally, no wheezes rales or rhonchi. ABDOMEN: Soft, nontender. Normoactive bowel sounds all 4 quadrants. No guarding or rebound. : No CVA tenderness EXTREMITIES: Normal range of motion, no clubbing or edema. Neurovascularly intact NEUROLOGICAL: Alert and oriented x4.Normal gait and speech. Cranial nerves II through XII grossly intact. Waste Baler strength equal bilaterally SKIN: Warm, dry, no laceration, no petechiae, no rashes or lesions. Psych Appearance: well kempt Mood: irritable mood Attitude: guarded, avoids eye contact and refuses to answer Thought Process: flight of ideas and illogical Thought Content: hallucinations Judgment: poor Course Orders Ordered: ED Orders 02/04/19 11:40 Ammonia (NH3) Stat Complete Blood Count AUTO DIFF Stat Comprehensive Metabolic Panel Stat Test Serum,Qual Stat Procalcitonin Stat Prolactin Stat 02/04/19 12:22 EKG-12 Lead Stat 02/04/19 12:37 XR chest 1V Stat 02/04/19 13:07 CT head/brain wo con Stat 02/04/19 13:22 Consult to Jewel Lathe Operator Stat 02/04/19 13:28 Urine Drug Screen, Rapid Stat Urine Microscopic Stat Discontinued Medications Sodium Chloride (Normal Saline 0.9%) 1,000 mls @ 1,000 mls/hr IV BOLUS ONE Stop: 02/04/19 13:41 Last Infusion: 02/04/19 14:35 Dose: 0 mls/hr Admin: 02/04/19 12:59 Dose: 1,000 mls/hr Levetiracetam 1,000 mg/ Sodium (Chloride) 110 mls @ 440 mls/hr IV NOW ONE Stop: 02/04/19 13:09 Last Infusion: 02/04/19 14:35 Dose: 0 mls/hr Admin: 02/04/19 13:37 Dose: 440 mls/hr Ibuprofen (Advil) 800 mg PO NOW ONE Stop: 02/04/19 19:31 Last Admin: 02/04/19 19:40 Dose: 800 mg Levetiracetam (Keppra) 500 mg PO NOW ONE Stop: 02/04/19 19:31 Last Admin: 02/04/19 19:40 Dose: 500 mg Vital Signs - 8 hr 02/04/19 12:25 02/04/19 12:27 02/04/19 13:00 Temperature 98.5 F Pulse Rate 80 86 78 Respiratory Rate 12 20 16 Blood Pressure 131/82 Blood Pressure [Right Arm] 131/82 123/78 Pulse Oximetry 100 100 97 02/04/19 13:51 02/04/19 13:53 02/04/19 14:00 Temperature Pulse Rate 78 Respiratory Rate 16 Blood Pressure Blood Pressure [Right Arm] 121/71 121/72 127/80 Pulse Oximetry 99 100 02/04/19 17:40 02/04/19 18:25 02/04/19 19:35 Temperature 97.9 F Pulse Rate 77 72 68 Respiratory Rate 18 20 16 Blood Pressure Blood Pressure [Right Arm] 105/57 L 116/72 97/56 L Pulse Oximetry 100 98 MDM - Seizure Lab Data Attestation: I reviewed the patient's lab results. Result diagrams: 02/04/19 11:40 02/04/19 11:40 Lab Results 02/04/19 02/04/19 02/04/19 Range/Units 11:40 11:40 11:40 WBC 8.8 (4.5-11.0) X10^3/uL RBC 4.97 (4.0-5.2) X10^6/uL Hgb 13.3 (12.0-16.0) g/dL Hct 39.9 (36-46) % MCV 80.3 (80-100) fL MCH 26.8 (26-34) PG MCHC 33.4 (30-36) % RDW 15.2 H (11.6-14.8) % Plt Count 279 (150-400) X10^3/uL Neut % (Auto) 68.3 (50-75) % Lymph % (Auto) 18.4 L (25-40) % Barnes % (Auto) 12.4 (3-14) % Eos % (Auto) 0.1 L (2-4) % Baso % (Auto) 0.8 (0-2) % Neut # (Auto) 6000 (3879-9192) /uL Lymph # (Auto) 1600 (0669-8283) /uL Barnes # (Auto) 1100 H (0-900) /uL Eos # (Auto) 0 (0-450) /uL Baso # (Auto) 100 (0-100) /uL Sodium 148 H (137-145) mmol/L Potassium 3.2 L (3.4-5.1) mmol/L Chloride 106 (98-107) mmol/L Carbon Dioxide 25 (22-32) mmol/L BUN 10 (7-17) mg/dL Creatinine 0.70 (0.52-1.04) mg/dL Estimated GFR > 60.0 (>60) mL/min BUN/Creatinine Ratio 14.3 (6-22) Glucose 112 H (70-100) mg/dL Calcium 10.0 (8.4-10.2) mg/dL Total Bilirubin 0.6 (0.2-1.3) mg/dL AST 31 (14-36) IU/L ALT 17 (9-52) IU/L Alkaline Phosphatase 93 (38-126) U/L Ammonia < 9.0 L (9-30) umol/L Total Protein 9.1 H (6.3-8.2) g/dL Albumin 4.9 (3.5-5.0) g/dL Globulin 4.2 H (1.7-4.1) g/dL Albumin/Globulin Ratio 1.2 (1.0-2.8) Procalcitonin (<0.5) ng/mL Prolactin (3.0-18.6) ng/mL Serum , Qual (Negative) Urine RBC (0-5/HPF) Urine WBC (0-5/HPF) Ur Squamous Epith Cells (0-5/HPF) Urine Bacteria (None) Urine Mucus (Negative) Ur Culture Indicated? Urine Opiates Screen (Negative) Ur Oxycodone Screen (Negative) Urine Methadone Screen (Negative) Ur Barbiturates Screen (Negative) U Tricyclic Antidepress (Negative) Ur Phencyclidine Scrn (Negative) Ur Amphetamines Screen (Negative) U Methamphetamines Scrn (Negative) Ur MDMA Scrn (Ecstasy) (Negative) U Benzodiazepines Scrn (Negative) Urine Cocaine Screen (Negative) U Marijuana (THC) Screen (Negative) 02/04/19 02/04/19 02/04/19 Range/Units 11:40 11:40 11:40 WBC (4.5-11.0) X10^3/uL RBC (4.0-5.2) X10^6/uL Hgb (12.0-16.0) g/dL Hct (36-46) % MCV (80-100) fL MCH (26-34) PG MCHC (30-36) % RDW (11.6-14.8) % Plt Count (150-400) X10^3/uL Neut % (Auto) (50-75) % Lymph % (Auto) (25-40) % Barnes % (Auto) (3-14) % Eos % (Auto) (2-4) % Baso % (Auto) (0-2) % Neut # (Auto) (4648-0011) /uL Lymph # (Auto) (6255-1839) /uL Barnes # (Auto) (0-900) /uL Eos # (Auto) (0-450) /uL Baso # (Auto) (0-100) /uL Sodium (137-145) mmol/L Potassium (3.4-5.1) mmol/L Chloride (98-107) mmol/L Carbon Dioxide (22-32) mmol/L BUN (7-17) mg/dL Creatinine (0.52-1.04) mg/dL Estimated GFR (>60) mL/min BUN/Creatinine Ratio (6-22) Glucose (70-100) mg/dL Calcium (8.4-10.2) mg/dL Total Bilirubin (0.2-1.3) mg/dL AST (14-36) IU/L ALT (9-52) IU/L Alkaline Phosphatase (38-126) U/L Ammonia (9-30) umol/L Total Protein (6.3-8.2) g/dL Albumin (3.5-5.0) g/dL Globulin (1.7-4.1) g/dL Albumin/Globulin Ratio (1.0-2.8) Procalcitonin 0.09 (<0.5) ng/mL Prolactin 25.0 H (3.0-18.6) ng/mL Serum , Qual Negative (Negative) Urine RBC (0-5/HPF) Urine WBC (0-5/HPF) Ur Squamous Epith Cells (0-5/HPF) Urine Bacteria (None) Urine Mucus (Negative) Ur Culture Indicated? Urine Opiates Screen (Negative) Ur Oxycodone Screen (Negative) Urine Methadone Screen (Negative) Ur Barbiturates Screen (Negative) U Tricyclic Antidepress (Negative) Ur Phencyclidine Scrn (Negative) Ur Amphetamines Screen (Negative) U Methamphetamines Scrn (Negative) Ur MDMA Scrn (Ecstasy) (Negative) U Benzodiazepines Scrn (Negative) Urine Cocaine Screen (Negative) U Marijuana (THC) Screen (Negative) 02/04/19 02/04/19 Range/Units 13:28 13:28 WBC (4.5-11.0) X10^3/uL RBC (4.0-5.2) X10^6/uL Hgb (12.0-16.0) g/dL Hct (36-46) % MCV (80-100) fL MCH (26-34) PG MCHC (30-36) % RDW (11.6-14.8) % Plt Count (150-400) X10^3/uL Neut % (Auto) (50-75) % Lymph % (Auto) (25-40) % Barnes % (Auto) (3-14) % Eos % (Auto) (2-4) % Baso % (Auto) (0-2) % Neut # (Auto) (8564-0628) /uL Lymph # (Auto) (6861-1703) /uL Barnes # (Auto) (0-900) /uL Eos # (Auto) (0-450) /uL Baso # (Auto) (0-100) /uL Sodium (137-145) mmol/L Potassium (3.4-5.1) mmol/L Chloride (98-107) mmol/L Carbon Dioxide (22-32) mmol/L BUN (7-17) mg/dL Creatinine (0.52-1.04) mg/dL Estimated GFR (>60) mL/min BUN/Creatinine Ratio (6-22) Glucose (70-100) mg/dL Calcium (8.4-10.2) mg/dL Total Bilirubin (0.2-1.3) mg/dL AST (14-36) IU/L ALT (9-52) IU/L Alkaline Phosphatase (38-126) U/L Ammonia (9-30) umol/L Total Protein (6.3-8.2) g/dL Albumin (3.5-5.0) g/dL Globulin (1.7-4.1) g/dL Albumin/Globulin Ratio (1.0-2.8) Procalcitonin (<0.5) ng/mL Prolactin (3.0-18.6) ng/mL Serum , Qual (Negative) Urine RBC None seen (0-5/HPF) Urine WBC 1-5/hpf (0-5/HPF) Ur Squamous Epith Cells 5-10 /hpf H (0-5/HPF) Urine Bacteria None seen (None) Urine Mucus 2+ H (Negative) Ur Culture Indicated? Cult not indicated Urine Opiates Screen Negative (Negative) Ur Oxycodone Screen Negative (Negative) Urine Methadone Screen Negative (Negative) Ur Barbiturates Screen Negative (Negative) U Tricyclic Antidepress Negative (Negative) Ur Phencyclidine Scrn Negative (Negative) Ur Amphetamines Screen Negative (Negative) U Methamphetamines Scrn Negative (Negative) Ur MDMA Scrn (Ecstasy) Negative (Negative) U Benzodiazepines Scrn Negative (Negative) Urine Cocaine Screen Negative (Negative) U Marijuana (THC) Screen Negative (Negative) Point of Care Testing Test Results Negative Glucose POC 119 Urine Dip Bedside Urine Glucose Negative Bedside Urine Bilirubin - Negative Bedside Urine Ketone + 15 Urine Specific Harvey 1.030 Bedside Urine Occult Blood - Negative Bedside Urine pH 6.0 Bedside Urine Protein +/- 15 Bedside Urine Urobilinogen +/- 1mg Bedside Urine Nitrite - Negative Bedside Urine Leukocytes - Negative Esterase Imaging Data CT scan - head: Radiologist's impression: PROCEDURE: CT HEAD/BRAIN WO CON INDICATIONS: hearing voices seizure TECHNIQUE: Noncontrast 4.5 mm thick angled axial sections acquired from the foramen magnum to the vertex, with coronal and sagittal reformats. For radiation dose reduction, the following was used: automated exposure control, adjustment of mA and/or kV according to patient size. COMPARISON: , CT, HEAD WITHOUT CONTRAST, 12/02/2015, 10:32. FINDINGS: Image quality: Excellent. CSF spaces: Basal cisterns are patent. No extra-axial fluid collections. Ventricles are normal in size and shape. Brain: No midline shift. No intracranial masses or hemorrhage. Montero-white matter interface is normal. Skull and face: Calvarium and visualized facial bones are intact, without suspicious lesions. Sinuses: Visualized sinuses and mastoids are clear. IMPRESSION: Normal for age, source of current altered mental status and seizure symptoms is not seen. Dictated by: Kurt Johnson M.D. on 02/04/2019 at 13:39 MDM Narrative Medical decision making narrative: Does to be hearing voices she looks off into space she stopped communicating with you. Her urine drug screen is negative head CT negative. She is given IV Keppra. Social Work has been on case. Patient has been made involuntary she has no capacity to see that she needs help and is unwilling to go. At this time she is not restrained she has been cooperative. Her cousin is with her who seems to help calm her. [facility] is the only place with a bed available however they will not accept her and so she has been monitored for 24 hours and has been seizure free. They want to make sure that she is taking her seizure medications. I have called and spoken with Marlene VAUGHAN , who was in ED to seen evaluate patient. She agrees with observation. I have discussed with her patient is involuntary a does not have capacity. Not allowed to leave. She understands. Discharge Plan Departure Patient Disposition: Admitted as Observation Clinical Impression: Seizure, Acute psychosis
[2019-02-04] MEDS: SODIUM CHLORIDE 0.9% 1,000 ML 1000 ML IV (12:59)
--- NOTE | 2019-02-04 13:07 | DI.CT.S_ITS ---
PROCEDURE: CT HEAD/BRAIN WO CON INDICATIONS: hearing voices seizure TECHNIQUE: Noncontrast 4.5 mm thick angled axial sections acquired from the foramen magnum to the vertex, with coronal and sagittal reformats. For radiation dose reduction, the following was used: automated exposure control, adjustment of mA and/or kV according to patient size. COMPARISON: [facility], CT, HEAD WITHOUT CONTRAST, 12/02/2015, 10:32. FINDINGS: Image quality: Excellent. CSF spaces: Basal cisterns are patent. No extra-axial fluid collections. Ventricles are normal in size and shape. Brain: No midline shift. No intracranial masses or hemorrhage. Montero-white matter interface is normal. Skull and face: Calvarium and visualized facial bones are intact, without suspicious lesions. Sinuses: Visualized sinuses and mastoids are clear. IMPRESSION: Normal for age, source of current altered mental status and seizure symptoms is not seen. Dictated by: Kurt Johnson M.D. on 02/04/2019 at 13:39 Approved by: Kurt Johnson M.D. on 02/04/2019 at 13:39
[2019-02-04 13:10] LABS: Ammonia (NH3) < 9.0 umol/L (9-30)
[2019-02-04 13:11] LABS: Alanine Aminotransferase 17 IU/L (9-52); Albumin 4.9 g/dL (3.5-5.0); Albumin Globulin Ratio 1.2 (1.0-2.8); Alkaline Phosphatase 93 U/L (38-126); Aspartate Aminotransferase 31 IU/L (14-36); BUN Creatinine Ratio 14.3 (6-22); Bilirubin Total 0.6 mg/dL (0.2-1.3); Blood Urea Nitrogen 10 mg/dL (7-17); Carbon Dioxide 25 mmol/L (22-32); Chloride 106 mmol/L (98-107); Estimated Glomerular Filt Rate > 60.0 mL/min (>60); Globulin 4.2 g/dL (1.7-4.1); Glucose 112 mg/dL (70-100); HEMOLYSIS < 15 (0-50); Potassium 3.2 mmol/L (3.4-5.1); Sodium 148 mmol/L (137-145); Total Protein 9.1 g/dL (6.3-8.2)
--- NOTE | 2019-02-04 13:20 | ED_ITS ---
HPI - Seizure General Chief Complaint: Seizure Stated Complaint: Altered mental state, headache,seizures Time Seen by Provider: 02/04/19 12:41 Source: patient Mode of arrival: ambulatory Limitations: no limitations History of Present Illness HPI Narrative: Patient is a 23-year-old female with history of epilepsy pre senting with altered mental status. She actually had a seizure on this 7th and she actually swallowed some dentures. Her cousin is with her he states that her last dose of Keppra was about a week ago and she has had 2 seizures this week. He has noted some odd behavior this week as well she seems to be more paranoid she states that she is hearing voices she says sometimes they tell her to kill h erself but there is no specific plans. She really will look at me while I am talking to her. Cousin took a video of her paranoid it yesterday. Apparently she feels like someone is after her but this particular person lives in [place] and is not here. MD complaint: seizure and other (Paranoia) Seizure History: known seizure disorder Place: home Related Data Home Medications Medication Instructions Recorded Confirmed Vimpat 50 mg PO BID 01/17/19 02/04/19 levetiracetam [Keppra] 1,500 mg PO BID 01/17/19 02/04/19 ibuprofen 1 dose PO PRN PRN 02/04/19 02/04/19 Allergies Allergy/AdvReac Type Severity Reaction Status Date / Time No Known Drug Allergies Allergy Verified 01/16/19 20:49 Review of Systems Review of Systems ROS Unobtainable: All systems reviewed & are unremarkable except as noted in HPI and below Constitutional Denies chills, Denies fever(s), Denies lethargy and Denies weakness Eyes Denies change in vision, Denies eye discharge, Denies irritation and Denies loss of vision Cardiovascular Denies chest pain, Denies irregular heart rhythm, Denies lightheadedness, Denies palpitations, Denies dyspnea, Denies dyspnea on exertion and Denies orthopnea Respiratory Denies cough, Denies dyspnea, Denies dyspnea on exertion and Denies wheezing Gastrointestinal Gastrointestinal: Denies abdominal pain, Denies change in bowel habits, Denies diarrhea, Denies nausea and Denies vomiting Genitourinary Denies hematuria, Denies flank pain, Denies urinary incontinence and Denies urinary urgency Musculoskeletal Denies back pain, Denies muscle weakness, Denies numbness and Denies tingling Integumentary/Breasts Denies pruritus, Denies erythema, Denies rash and Denies wounds Neurologic Reports behavioral changes, Reports confusion, Denies loss of vision, Reports memory loss, Denies numbness, Reports convulsions, Reports seizure-like activity, Denies tingling and Denies weakness Psychiatric Reports behavioral changes, Reports confusion, Reports auditory hallucinations, Reports irritability, Reports memory loss, Reports mood swings and Reports hallucinations Endocrine Denies palpitations Allergic/Immunologic Denies wheezing [facility] Medical History Anemia (Acute) Epilepsy (Acute) Social History household members: family Smoking Status: Former smoker alcohol intake: current Social History household members: family Smoking Status: Former smoker alcohol intake: current Exam Initial Vital Signs Initial Vital Signs: Vital Signs Pulse Rate 80 02/04/19 12:25 Respiratory Rate 12 02/04/19 12:25 Blood Pressure 131/82 02/04/19 12:25 Pulse Oximetry 100 02/04/19 12:25 GENERAL: Well-appearing, well-nourished and in no acute distress. HEENT: Head atraumatic,EOMI, pupils reactive, face symmetric, moist mucous membranes CARDIOVASCULAR: Regular rate and rhythm without murmurs, rubs or gallops. RESPIRATORY: Breath sounds equal bilaterally, no wheezes rales or rhonchi. ABDOMEN: Soft, nontender. Normoactive bowel sounds all 4 quadrants. No guarding or rebound. : No CVA tenderness EXTREMITIES: Normal range of motion, no clubbing or edema. Neurovascularly intact NEUROLOGICAL: Alert and oriented x4.Normal gait and speech. Cranial nerves II through XII grossly intact. Weigher Operator strength equal bilaterally SKIN: Warm, dry, no laceration, no petechiae, no rashes or lesions. Psych Appearance: well kempt Mood: irritable mood Attitude: guarded, avoids eye contact and refuses to answer Thought Process: flight of ideas and illogical Thought Content: hallucinations Judgment: poor Course Orders Ordered: ED Orders 02/04/19 11:40 Ammonia (NH3) Stat Complete Blood Count AUTO DIFF Stat Comprehensive Metabolic Panel Stat Test Serum,Qual Stat Procalcitonin Stat Prolactin Stat 02/04/19 12:22 EKG-12 Lead Stat 02/04/19 12:37 XR chest 1V Stat 02/04/19 13:07 CT head/brain wo con Stat 02/04/19 13:22 Consult to Programmer Or Analyst Stat 02/04/19 13:28 Urine Drug Screen, Rapid Stat Urine Microscopic Stat Discontinued Medications Sodium Chloride (Normal Saline 0.9%) 1,000 mls @ 1,000 mls/hr IV BOLUS ONE Stop: 02/04/19 13:41 Last Infusion: 02/04/19 14:35 Dose: 0 mls/hr Admin: 02/04/19 12:59 Dose: 1,000 mls/hr Levetiracetam 1,000 mg/ Sodium (Chloride) 110 mls @ 440 mls/hr IV NOW ONE Stop: 02/04/19 13:09 Last Infusion: 02/04/19 14:35 Dose: 0 mls/hr Admin: 02/04/19 13:37 Dose: 440 mls/hr Ibuprofen (Advil) 800 mg PO NOW ONE Stop: 02/04/19 19:31 Last Admin: 02/04/19 19:40 Dose: 800 mg Levetiracetam (Keppra) 500 mg PO NOW ONE Stop: 02/04/19 19:31 Last Admin: 02/04/19 19:40 Dose: 500 mg Vital Signs - 8 hr 02/04/19 12:25 02/04/19 12:27 02/04/19 13:00 Temperature 98.5 F Pulse Rate 80 86 78 Respiratory Rate 12 20 16 Blood Pressure 131/82 Blood Pressure [Right Arm] 131/82 123/78 Pulse Oximetry 100 100 97 02/04/19 13:51 02/04/19 13:53 02/04/19 14:00 Temperature Pulse Rate 78 Respiratory Rate 16 Blood Pressure Blood Pressure [Right Arm] 121/71 121/72 127/80 Pulse Oximetry 99 100 02/04/19 17:40 02/04/19 18:25 02/04/19 19:35 Temperature 97.9 F Pulse Rate 77 72 68 Respiratory Rate 18 20 16 Blood Pressure Blood Pressure [Right Arm] 105/57 L 116/72 97/56 L Pulse Oximetry 100 98 MDM - Seizure Lab Data Attestation: I reviewed the patient's lab results. Result diagrams: 02/04/19 11:40 02/04/19 11:40 Lab Results 02/04/19 02/04/19 02/04/19 Range/Units 11:40 11:40 11:40 WBC 8.8 (4.5-11.0) X10^3/uL RBC 4.97 (4.0-5.2) X10^6/uL Hgb 13.3 (12.0-16.0) g/dL Hct 39.9 (36-46) % MCV 80.3 (80-100) fL MCH 26.8 (26-34) PG MCHC 33.4 (30-36) % RDW 15.2 H (11.6-14.8) % Plt Count 279 (150-400) X10^3/uL Neut % (Auto) 68.3 (50-75) % Lymph % (Auto) 18.4 L (25-40) % Thomas % (Auto) 12.4 (3-14) % Eos % (Auto) 0.1 L (2-4) % Baso % (Auto) 0.8 (0-2) % Neut # (Auto) 6000 (2261-5087) /uL Lymph # (Auto) 1600 (0714-7456) /uL Thomas # (Auto) 1100 H (0-900) /uL Eos # (Auto) 0 (0-450) /uL Baso # (Auto) 100 (0-100) /uL Sodium 148 H (137-145) mmol/L Potassium 3.2 L (3.4-5.1) mmol/L Chloride 106 (98-107) mmol/L Carbon Dioxide 25 (22-32) mmol/L BUN 10 (7-17) mg/dL Creatinine 0.70 (0.52-1.04) mg/dL Estimated GFR > 60.0 (>60) mL/min BUN/Creatinine Ratio 14.3 (6-22) Glucose 112 H (70-100) mg/dL Calcium 10.0 (8.4-10.2) mg/dL Total Bilirubin 0.6 (0.2-1.3) mg/dL AST 31 (14-36) IU/L ALT 17 (9-52) IU/L Alkaline Phosphatase 93 (38-126) U/L Ammonia < 9.0 L (9-30) umol/L Total Protein 9.1 H (6.3-8.2) g/dL Albumin 4.9 (3.5-5.0) g/dL Globulin 4.2 H (1.7-4.1) g/dL Albumin/Globulin Ratio 1.2 (1.0-2.8) Procalcitonin (<0.5) ng/mL Prolactin (3.0-18.6) ng/mL Serum , Qual (Negative) Urine RBC (0-5/HPF) Urine WBC (0-5/HPF) Ur Squamous Epith Cells (0-5/HPF) Urine Bacteria (None) Urine Mucus (Negative) Ur Culture Indicated? Urine Opiates Screen (Negative) Ur Oxycodone Screen (Negative) Urine Methadone Screen (Negative) Ur Barbiturates Screen (Negative) U Tricyclic Antidepress (Negative) Ur Phencyclidine Scrn (Negative) Ur Amphetamines Screen (Negative) U Methamphetamines Scrn (Negative) Ur MDMA Scrn (Ecstasy) (Negative) U Benzodiazepines Scrn (Negative) Urine Cocaine Screen (Negative) U Marijuana (THC) Screen (Negative) 02/04/19 02/04/19 02/04/19 Range/Units 11:40 11:40 11:40 WBC (4.5-11.0) X10^3/uL RBC (4.0-5.2) X10^6/uL Hgb (12.0-16.0) g/dL Hct (36-46) % MCV (80-100) fL MCH (26-34) PG MCHC (30-36) % RDW (11.6-14.8) % Plt Count (150-400) X10^3/uL Neut % (Auto) (50-75) % Lymph % (Auto) (25-40) % Thomas % (Auto) (3-14) % Eos % (Auto) (2-4) % Baso % (Auto) (0-2) % Neut # (Auto) (8379-9073) /uL Lymph # (Auto) (6604-7763) /uL Thomas # (Auto) (0-900) /uL Eos # (Auto) (0-450) /uL Baso # (Auto) (0-100) /uL Sodium (137-145) mmol/L Potassium (3.4-5.1) mmol/L Chloride (98-107) mmol/L Carbon Dioxide (22-32) mmol/L BUN (7-17) mg/dL Creatinine (0.52-1.04) mg/dL Estimated GFR (>60) mL/min BUN/Creatinine Ratio (6-22) Glucose (70-100) mg/dL Calcium (8.4-10.2) mg/dL Total Bilirubin (0.2-1.3) mg/dL AST (14-36) IU/L ALT (9-52) IU/L Alkaline Phosphatase (38-126) U/L Ammonia (9-30) umol/L Total Protein (6.3-8.2) g/dL Albumin (3.5-5.0) g/dL Globulin (1.7-4.1) g/dL Albumin/Globulin Ratio (1.0-2.8) Procalcitonin 0.09 (<0.5) ng/mL Prolactin 25.0 H (3.0-18.6) ng/mL Serum , Qual Negative (Negative) Urine RBC (0-5/HPF) Urine WBC (0-5/HPF) Ur Squamous Epith Cells (0-5/HPF) Urine Bacteria (None) Urine Mucus (Negative) Ur Culture Indicated? Urine Opiates Screen (Negative) Ur Oxycodone Screen (Negative) Urine Methadone Screen (Negative) Ur Barbiturates Screen (Negative) U Tricyclic Antidepress (Negative) Ur Phencyclidine Scrn (Negative) Ur Amphetamines Screen (Negative) U Methamphetamines Scrn (Negative) Ur MDMA Scrn (Ecstasy) (Negative) U Benzodiazepines Scrn (Negative) Urine Cocaine Screen (Negative) U Marijuana (THC) Screen (Negative) 02/04/19 02/04/19 Range/Units 13:28 13:28 WBC (4.5-11.0) X10^3/uL RBC (4.0-5.2) X10^6/uL Hgb (12.0-16.0) g/dL Hct (36-46) % MCV (80-100) fL MCH (26-34) PG MCHC (30-36) % RDW (11.6-14.8) % Plt Count (150-400) X10^3/uL Neut % (Auto) (50-75) % Lymph % (Auto) (25-40) % Thomas % (Auto) (3-14) % Eos % (Auto) (2-4) % Baso % (Auto) (0-2) % Neut # (Auto) (9992-9954) /uL Lymph # (Auto) (5325-3581) /uL Thomas # (Auto) (0-900) /uL Eos # (Auto) (0-450) /uL Baso # (Auto) (0-100) /uL Sodium (137-145) mmol/L Potassium (3.4-5.1) mmol/L Chloride (98-107) mmol/L Carbon Dioxide (22-32) mmol/L BUN (7-17) mg/dL Creatinine (0.52-1.04) mg/dL Estimated GFR (>60) mL/min BUN/Creatinine Ratio (6-22) Glucose (70-100) mg/dL Calcium (8.4-10.2) mg/dL Total Bilirubin (0.2-1.3) mg/dL AST (14-36) IU/L ALT (9-52) IU/L Alkaline Phosphatase (38-126) U/L Ammonia (9-30) umol/L Total Protein (6.3-8.2) g/dL Albumin (3.5-5.0) g/dL Globulin (1.7-4.1) g/dL Albumin/Globulin Ratio (1.0-2.8) Procalcitonin (<0.5) ng/mL Prolactin (3.0-18.6) ng/mL Serum , Qual (Negative) Urine RBC None seen (0-5/HPF) Urine WBC 1-5/hpf (0-5/HPF) Ur Squamous Epith Cells 5-10 /hpf H (0-5/HPF) Urine Bacteria None seen (None) Urine Mucus 2+ H (Negative) Ur Culture Indicated? Cult not indicated Urine Opiates Screen Negative (Negative) Ur Oxycodone Screen Negative (Negative) Urine Methadone Screen Negative (Negative) Ur Barbiturates Screen Negative (Negative) U Tricyclic Antidepress Negative (Negative) Ur Phencyclidine Scrn Negative (Negative) Ur Amphetamines Screen Negative (Negative) U Methamphetamines Scrn Negative (Negative) Ur MDMA Scrn (Ecstasy) Negative (Negative) U Benzodiazepines Scrn Negative (Negative) Urine Cocaine Screen Negative (Negative) U Marijuana (THC) Screen Negative (Negative) Point of Care Testing Test Results Negative Glucose POC 119 Urine Dip Bedside Urine Glucose Negative Bedside Urine Bilirubin - Negative Bedside Urine Ketone + 15 Urine Specific [place] 1.030 Bedside Urine Occult Blood - Negative Bedside Urine pH 6.0 Bedside Urine Protein +/- 15 Bedside Urine Urobilinogen +/- 1mg Bedside Urine Nitrite - Negative Bedside Urine Leukocytes - Negative Esterase Imaging Data CT scan - head: Radiologist's impression: PROCEDURE: CT HEAD/BRAIN WO CON INDICATIONS: hearing voices seizure TECHNIQUE: Noncontrast 4.5 mm thick angled axial sections acquired from the foramen magnum to the vertex, with coronal and sagittal reformats. For radiation dose reduction, the following was used: automated exposure control, adjustment of mA and/or kV according to patient size. COMPARISON: [facility], CT, HEAD WITHOUT CONTRAST, 12/02/2015, 10:32. FINDINGS: Image quality: Excellent. CSF spaces: Basal cisterns are patent. No extra-axial fluid collections. Ventricles are normal in size and shape. Brain: No midline shift. No intracranial masses or hemorrhage. Montero-white matter interface is normal. Skull and face: Calvarium and visualized facial bones are intact, without suspicious lesions. Sinuses: Visualized sinuses and mastoids are clear. IMPRESSION: Normal for age, source of current altered mental status and seizure symptoms is not seen. Dictated by: Kurt Johnson M.D. on 02/04/2019 at 13:39 MDM Narrative Medical decision making narrative: Does to be hearing voices she looks off into space she stopped communicating with you. Her urine drug screen is negative head CT negative. She is given IV Keppra. Social Work has been on case. Patient has been made involuntary she has no capacity to see that she needs help and is unwilling to go. At this time she is not restrained she has been cooperative. Her cousin is with her who seems to help calm her. [facility] is the only place with a bed available however they will not accept her and so she has been monitored for 24 hours and has been seizure free. They want to make sure that she is taking her seizure medications. I have called and spoken with Marlene VAUGHAN , who was in ED to seen evaluate patient. She agrees with observation. I have discussed with her patient is [facility] does not have capacity. Not allowed to leave. She understands. Discharge Plan Departure Patient Disposition: Admitted as Observation Clinical Impression: Seizure, Acute psychosis
[2019-02-04 13:32] LABS: Pregnancy Test Serum,Qual Negative (Negative)
[2019-02-04] MEDS: levETIRAcetam 1,000 MG in SODIUM CHLORIDE 0.9% 100 ML 440 ML IV (13:37)
[2019-02-04 13:40] LABS: Procalcitonin 0.09 ng/mL (<0.5)
[2019-02-04 13:43] LABS: Urine Amphetamines Negative (Negative); Urine Barbiturates Negative (Negative); Urine Benzodiazepines Negative (Negative); Urine Cocaine Negative (Negative); Urine MDMA Negative (Negative); Urine Methadone Negative (Negative); Urine Methamphetamines Negative (Negative); Urine Morphine/Opi cutoff 2000 Negative (Negative); Urine Oxycodone Negative (Negative); Urine Phencyclidine Negative (Negative); Urine Tetrahydrocannabinol Negative (Negative); Urine Tricyclic Antidepressant Negative (Negative)
[2019-02-04 13:54] LABS: Bacteria Urine None Seen; RBC Urine None Seen (0-5/HPF)
--- NOTE | 2019-02-04 14:02 | PC.NURSE ---
0660 I assisted the pt onto the bed valentine to give us a urine sample. Pt stated that it was uncomfortable so I offered to raise the head of the bed. Pt then got up and crouched over the bed valentine and proceeded to void. Pt was asking if the man who came to the hospital with her was her cousin, I responded and told her that it was her boyfriend. Pt seemed confused and asked if he was the only one with her here. Pt then proceeded to stand up on the gurney, I asked her to please remain sitting as its a safety hazard. Pt was agreeable and sat back on the gurney.
[2019-02-04 14:15] LABS: Culture Indicated Urine Cult Not Indicated; Mucus Urine 2+ (Negative); Squamous Epithelial Cell Urine 5-10 /HPF (0-5/HPF); WBC Urine 1-5/HPF (0-5/HPF)
--- NOTE | 2019-02-04 14:31 | PC.NURSE ---
Pt stating she wants to leave, asked me to remove her IV. I told her that I would need to go talk to a nurse. RN and DR perrin
--- NOTE | 2019-02-04 14:33 | PC.NURSE ---
1330 Pt asked to go to the bathroom, I told her that we would use a bed valentine because the RN doesn't want her to get up. Once on the bedpan pt was complaining that it was uncomfortable, I offered to raise the head of the bed. Pt then sat up and began to crouch over the bedpan to urinate. Pt then stood up on the gurney. I asked the pt to sit back down due to the safety hazard. Pt was compliant and agreeable.
--- NOTE | 2019-02-04 16:15 | PC.NURSE ---
[facility] Yoselyn called zeeshan gpt.Payal is considering admitting her. They are concerned about her seizures. Yoselyn is calling Payal back zeeshan astorgat and will return call to us with info
--- NOTE | 2019-02-04 16:38 | PC.NURSE ---
pt laying on bed with male poolroom table attendant
--- NOTE | 2019-02-04 19:05 | CM.SWNOTE ---
Initial Discharge Planning Note: Payor: Cortez Zamora PCP: Pt is from [place]/visiting Presenting ED Issue: Change in mental status Pt presented to the ED with altered mental status, having also presented on 01/16/19 for having had a seizure while in town visiting her friend (she also refers to him as her cousin). Pt has not taken her Keppra for her known epilepsy since the beginning of January, and over the last few days has become increasingly paranoid, is having auditory hallucinations, is disoriented to person/place/time, and is unable to provide for her own self history. During the HOSPITAL TRAY SERVICE WORKER assessment, pt often became flat in affect with a non-intentional stare. She has no known mental health history, and has a job back in [place], where she resides. Both Dr. Kessler and this HOSPITAL TRAY SERVICE WORKER agreed on pt's state as gravely disabled and unsafe to discharge without a DCR assessment for ERNESTINE placement. Unfortunately, [facility] was unable to obtain a bed for pt due to the concern that she has not been on the Keppra, and thus she need's to be medically cleared by being admitted and provided several doses of Keppra in order to rule out if these changes in mentation are a direct result of her latest seizures and lack of Keppra in her system. Dr. Kessler will take steps for patient to be admitted, [facility] states that over the next 24-48 hours, that it is more likely that patient will be accepted at either [facility] or [facility]. Discharge Planning/Care Management ED Crisis Response Assessment Start: 02/04/19 15:31 Freq: Status: Active Protocol: Document 02/04/19 15:31 DPL (Rec: 02/04/19 16:10 DPL [id number]) ED Crisis Response Assessment HOSPITAL TRAY SERVICE WORKER Assessment Type Mental Health Reason for HOSPITAL TRAY SERVICE WORKER Referral Mental health assessment/ evaluate for DCR need and inpatient placement. Referred by ED Provider-Dr. Kessler Presenting Problem Pt is here visiting here from [place], visiting her cousin in [place]. She presents as paranoid, unable to provide accurate self-history, has been hearing auditory hallucinations telling her to kill herself. She is not tracking well, and will observably demonstrate a flat, vacant affect throughout the assessment. She is a diagnosed epileptic, has not had any of her prescribed Keppra since the beginning of January, and has had at least 3-known seizures since January 16, per her cousin' s report. She is not oriented to time or place, and at times doesn't know who she is or what is happening. She did not recognize her own cousin who brought her in today, and has continually demonstrated bizarre behaviors in the exam room. Example: She stood up on the hospital bed and perched over the bedpan to urinate, then continued to stay standing upright in the middle of the bed. VOA/CMS check Yes Suicidal thoughts No Past Suicidal thoughts No Current Suicidal thoughts No Prior Suicide attempts No Number of suicide attempts 0 Current plan for self harm No Access to guns and weapons No Thoughts of harm to others No Past thoughts of harm to others No Current thoughts of harming others No Prior attempts to harm others No Number of attempts to harm others 0 Current plan to harm others No Risk factor comments Pt is here visiting her cousin , and resides in [place], [place], and was supposed to have returned home last Thursday. However, she had a siezure and needed to stay. She has decompensated mentally since that time. She has 2- young children who are currenly staying with their father, however pt is now so unstable and disoriented, that is is no longer safe for her to leave the hospital without mental health intervention. Relevant Medical History Epilepsy is the only known medical condition. Crisis Plan HOSPITAL TRAY SERVICE WORKER assessed pt as gravely disabled, request for DCR has been dispatched for ERNESTINE assessment. Action taken Transfer higher level
[2019-02-04] MEDS: levETIRAcetam 250 MG TABLET 500 MG PO (19:40)
[2019-02-04] MEDS: IBUPROFEN 400 MG TABLET 800 MG PO (19:40)
--- NOTE | 2019-02-04 20:21 | PM.HP.1 ---
History of Present Illness Date Patient Seen: 02/04/19 Time Patient Seen: 18:00 Chief complaint: Altered mental state, headache,seizures Narrative: Dayana Scott is a 23-year-old female, visiting from [place] and has been in this state for the better part of January. She has a seizure disorder and apparently a new onset mental illness with a presentation of hallucinations and delirium. She presented to the emergency department approximately 6 hours ago after having a total of 4 seizures over the last 2 days. She is accompanied by her cousin who actually videotaped her seizures and he states that she has been unable to take her medications because she ran out of them. She currently takes Vimpat and Keppra and from what little I was able to ascertain, it appears that she stop taking her antiseizure medications when she lost medical coverage when her was discharged from service. The cousin states on Thursday of this week he observed her to have for seizures. Two of them lasted from 4-5 minutes and included both abnormal movements and abnormal breathing. He also stated that she was making strange vocalizing sounds. The other 2 seizures he states lasted for approximately 1 minute. The following day Thursday, he found her at his home with her face swollen bruise and ascertained that she had had another seizure. The patient was actually seen on January 16 after having had a seizure and swallowing a partial dental appliance which had to be endoscopically removed by surgery. Patient History Medical History Acute metabolic encephalopathy (Acute) Hypokalemia (Acute) Anemia (Acute) Epilepsy (Acute) Social History household members: family Smoking Status: Former smoker alcohol intake: current Family & Social History Social History: household members family Grandparents both sides w/diabetes type 2 Safety & Behavioral: Feels Safe in Current Yes Environment Been Physically Hurt or No Threatened By a Person Tobacco & Substance use: Tobacco type cannabis/marijuana Smoking Status Former smoker alcohol intake current alcohol intake frequency a few times a week Substance Use Type marijuana Meds Home Medications Medication Instructions Recorded Confirmed Type Vimpat 50 mg PO BID 01/17/19 02/04/19 History levetiracetam [Keppra] 1,500 mg PO BID 01/17/19 02/04/19 History ibuprofen 1 dose PO PRN PRN 02/04/19 02/04/19 History Allergies Allergy/AdvReac Type Severity Reaction Status Date / Time No Known Drug Allergies Allergy Verified 01/16/19 20:49 Review of Systems Review of Systems Patient does complain of a headache, cramps and her cousin states that she was nauseous. When questioned, patient stops mid-sentence and does not appear to be able to complete her thought. unobtainable due to mental status Exam Vital Signs (past 8 hours): - 02/04/19 12:25 02/04/19 12:27 02/04/19 13:00 Temperature 98.5 F Pulse Rate 80 86 78 Respiratory Rate 12 20 16 Blood Pressure 131/82 Blood Pressure [Right Arm] 131/82 123/78 Pulse Oximetry 100 100 97 02/04/19 13:51 02/04/19 13:53 02/04/19 14:00 Temperature Pulse Rate 78 Respiratory Rate 16 Blood Pressure Blood Pressure [Right Arm] 121/71 121/72 127/80 Pulse Oximetry 99 100 02/04/19 17:40 02/04/19 18:25 02/04/19 19:35 Temperature 97.9 F Pulse Rate 77 72 68 Respiratory Rate 18 20 16 Blood Pressure Blood Pressure [Right Arm] 105/57 L 116/72 97/56 L Pulse Oximetry 100 98 Oxygen Delivery Method Room Air Narrative Exam Narrative: Gen: Alert, oriented 23 y.o. well-developed -[place] female, intermittently alert and cooperative HEENT: bruising of her upper lip, central, conjunctiva clear, sclera non-icteric, oral mucosa pink and moist Neck: supple, full ROM Resp: Lungs CTA, non-labored breathing CV: RRR, no murmur or rubs Abd: soft, non-tender, normoactive BTs Skin: no lesions or rashes, dry and intact Neuro: Alert and oriented to herself and her cousin, stops mid-sentence and unable to complete sentences. Extremities: chorea like movements of her upper extremities. Psyche: cooperative, but confused. Objective Labs Result Diagrams: 02/04/19 11:40 02/04/19 11:40 Labs: Laboratory Results - last 24 hr 02/04/19 02/04/19 02/04/19 11:40 11:40 11:40 WBC 8.8 RBC 4.97 Hgb 13.3 Hct 39.9 MCV 80.3 MCH 26.8 MCHC 33.4 RDW 15.2 H Plt Count 279 Neut % (Auto) 68.3 Lymph % (Auto) 18.4 L Iron % (Auto) 12.4 Eos % (Auto) 0.1 L Baso % (Auto) 0.8 Neut # (Auto) 6000 Lymph # (Auto) 1600 Iron # (Auto) 1100 H Eos # (Auto) 0 Baso # (Auto) 100 Sodium 148 H Potassium 3.2 L Chloride 106 Carbon Dioxide 25 BUN 10 Creatinine 0.70 Estimated GFR > 60.0 BUN/Creatinine Ratio 14.3 Glucose 112 H Calcium 10.0 Total Bilirubin 0.6 AST 31 ALT 17 Alkaline Phosphatase 93 Ammonia < 9.0 L Total Protein 9.1 H Albumin 4.9 Globulin 4.2 H Albumin/Globulin Ratio 1.2 Procalcitonin Prolactin Serum , Qual Urine RBC Urine WBC Ur Squamous Epith Cells Urine Bacteria Urine Mucus Ur Culture Indicated? Urine Opiates Screen Ur Oxycodone Screen Urine Methadone Screen Ur Barbiturates Screen U Tricyclic Antidepress Ur Phencyclidine Scrn Ur Amphetamines Screen U Methamphetamines Scrn Ur MDMA Scrn (Ecstasy) U Benzodiazepines Scrn Urine Cocaine Screen U Marijuana (THC) Screen 02/04/19 02/04/19 02/04/19 11:40 11:40 11:40 WBC RBC Hgb Hct MCV MCH MCHC RDW Plt Count Neut % (Auto) Lymph % (Auto) Iron % (Auto) Eos % (Auto) Baso % (Auto) Neut # (Auto) Lymph # (Auto) Iron # (Auto) Eos # (Auto) Baso # (Auto) Sodium Potassium Chloride Carbon Dioxide BUN Creatinine Estimated GFR BUN/Creatinine Ratio Glucose Calcium Total Bilirubin AST ALT Alkaline Phosphatase Ammonia Total Protein Albumin Globulin Albumin/Globulin Ratio Procalcitonin 0.09 Prolactin 25.0 H Serum , Qual Negative Urine RBC Urine WBC Ur Squamous Epith Cells Urine Bacteria Urine Mucus Ur Culture Indicated? Urine Opiates Screen Ur Oxycodone Screen Urine Methadone Screen Ur Barbiturates Screen U Tricyclic Antidepress Ur Phencyclidine Scrn Ur Amphetamines Screen U Methamphetamines Scrn Ur MDMA Scrn (Ecstasy) U Benzodiazepines Scrn Urine Cocaine Screen U Marijuana (THC) Screen 02/04/19 02/04/19 13:28 13:28 WBC RBC Hgb Hct MCV MCH MCHC RDW Plt Count Neut % (Auto) Lymph % (Auto) Iron % (Auto) Eos % (Auto) Baso % (Auto) Neut # (Auto) Lymph # (Auto) Iron # (Auto) Eos # (Auto) Baso # (Auto) Sodium Potassium Chloride Carbon Dioxide BUN Creatinine Estimated GFR BUN/Creatinine Ratio Glucose Calcium Total Bilirubin AST ALT Alkaline Phosphatase Ammonia Total Protein Albumin Globulin Albumin/Globulin Ratio Procalcitonin Prolactin Serum , Qual Urine RBC None seen Urine WBC 1-5/hpf Ur Squamous Epith Cells 5-10 /hpf H Urine Bacteria None seen Urine Mucus 2+ H Ur Culture Indicated? Cult not indicated Urine Opiates Screen Negative Ur Oxycodone Screen Negative Urine Methadone Screen Negative Ur Barbiturates Screen Negative U Tricyclic Antidepress Negative Ur Phencyclidine Scrn Negative Ur Amphetamines Screen Negative U Methamphetamines Scrn Negative Ur MDMA Scrn (Ecstasy) Negative U Benzodiazepines Scrn Negative Urine Cocaine Screen Negative U Marijuana (THC) Screen Negative Assessment & Plan Assessment & Plan narrative: Dayana Scott has been placed under involuntary psychiatric hold pending placement to a inpatient psychiatric facility. [facility] will not take her until she has been observed for 24 hours without seizure activity. The other psychiatric facilities in the area currently have no beds, but may have beds available in the morning. She will be placed in the ICU with one-to-one observation overnight and social work will work with her and her family member in the morning to get her placed. Her admission was discussed with both the day hospitalist, the nursing canal equipment maintenance supervisor, in consultation with her nurse information technology manager. 1. Uncontrolled seizure disorder She was given Keppra 1000 mg IV in the emergency department as well as her 1st dose orally of 750 mg which she is supposed to take twice daily. Patient will be admitted with seizure precautions to the ICU. Patient will need to be seizure-free times 24 hours prior to discharge to inpatient psychiatric facility. 2. Acute hyperkalemia with a potassium level of 3.2 She will receive potassium 40 mEq p.o. x1 Recheck potassium level in the morning 3. Acute metabolic encephalopathy, possibly caused by acute psychotic episode Patient is on involuntary psychiatric hold with the expectation of transfer to a psychiatric facility in the morning. She is currently deemed to not be a flight risk or violent. After consultation with the emergency physician, nursing canal equipment maintenance supervisor in conjunction with her nursing officer, the day hospitalist, it was determined that the patient could be appropriately admitted to the ICU for tonight. I have discussed her anti seizure medications with pharmacy and it does not appear that her anti-seizure medications should be causing her extra pyramidal symptoms or acute psychosis. Patient is admitted an inpatient as his/her stay requires close monitoring in the ICU. FEN: IV saline lock, regular diet, electrolytes in the morning VTE Prophylaxis: Bilateral Tristan hose, patient is active and ambulatory Disposition: Probable discharge to psychiatric facility hopefully in the morning Code status: Full code Admission time: 65 minutes Meds reconciled: Partial based on current med list Scores GCS Jim coma scale eye opening: Spontaneous [place] coma scale verbal response: Confused Jim coma scale motor response: Abnormal flexion [place] coma scale total score: 11 Quality VTE Deep Vein Thrombosis/Pulmonary Embolism Present on Admission: No
--- NOTE | 2019-02-04 20:36 | P.HP_ITS ---
History of Present Illness Date Patient Seen: 02/04/19 Time Patient Seen: 18:00 Chief complaint: Altered mental state, headache,seizures Narrative: Dayana Scott is a 23-year-old female, visiting from [place] and has been in this state for the better part of January. She has a seizure disorder and apparently a new onset mental illness with a presentation of hallucinations and delirium. She presented to the emergency department approximately 6 hours ago after having a total of 4 seizures over the last 2 days. She is accompanied by her cousin who actually videotaped her seizures and he states that she has been unable to take her medications because she ran out of them. She currently takes Vimpat and Keppra and from what little I was able to ascertain, it appears that she stop taking her antiseizure medications when she lost medical coverage when her was discharged from service. The cousin states on Thursday of this week he observed her to have for seizures. Two of them lasted from 4-5 minutes and included both abnormal movements and abnormal breathing. He also stated that she was making strange vocalizing sounds. The other 2 seizures he states lasted for approximately 1 minute. The following day Thursday, he found her at his home with her face swollen bruise and ascertained that she had had another seizure. The patient was actually seen on January 16 after having had a seizure and swallowing a partial dental appliance which had to be endoscopically removed by surgery. Patient History Medical History Acute metabolic encephalopathy (Acute) Hypokalemia (Acute) Anemia (Acute) Epilepsy (Acute) Social History household members: family Smoking Status: Former smoker alcohol intake: current Family & Social History Social History: household members family Grandparents both sides w/diabetes type 2 Safety & Behavioral: Feels Safe in Current Yes Environment Been Physically Hurt or No Threatened By a Person Tobacco & Substance use: Tobacco type cannabis/marijuana Smoking Status Former smoker alcohol intake current alcohol intake frequency a few times a week Substance Use Type marijuana Meds Home Medications Medication Instructions Recorded Confirmed Type Vimpat 50 mg PO BID 01/17/19 02/04/19 History levetiracetam [Keppra] 1,500 mg PO BID 01/17/19 02/04/19 History ibuprofen 1 dose PO PRN PRN 02/04/19 02/04/19 History Allergies Allergy/AdvReac Type Severity Reaction Status Date / Time No Known Drug Allergies Allergy Verified 01/16/19 20:49 Review of Systems Review of Systems Patient does complain of a headache, cramps and her cousin states that she was nauseous. When questioned, patient stops mid-sentence and does not appear to be able to complete her thought. unobtainable due to mental status Exam Vital Signs (past 8 hours): - 02/04/19 12:25 02/04/19 12:27 02/04/19 13:00 Temperature 98.5 F Pulse Rate 80 86 78 Respiratory Rate 12 20 16 Blood Pressure 131/82 Blood Pressure [Right Arm] 131/82 123/78 Pulse Oximetry 100 100 97 02/04/19 13:51 02/04/19 13:53 02/04/19 14:00 Temperature Pulse Rate 78 Respiratory Rate 16 Blood Pressure Blood Pressure [Right Arm] 121/71 121/72 127/80 Pulse Oximetry 99 100 02/04/19 17:40 02/04/19 18:25 02/04/19 19:35 Temperature 97.9 F Pulse Rate 77 72 68 Respiratory Rate 18 20 16 Blood Pressure Blood Pressure [Right Arm] 105/57 L 116/72 97/56 L Pulse Oximetry 100 98 Oxygen Delivery Method Room Air Narrative Exam Narrative: Gen: Alert, oriented 23 y.o. well-developed -[place]arian female, intermittently alert and cooperative HEENT: bruising of her upper lip, central, conjunctiva clear, sclera non- icteric, oral mucosa pink and moist Neck: supple, full ROM Resp: Lungs CTA, non-labored breathing CV: RRR, no murmur or rubs Abd: soft, non-tender, normoactive BTs Skin: no lesions or rashes, dry and intact Neuro: Alert and oriented to herself and her cousin, stops mid-sentence and unable to complete sentences. Extremities: chorea like movements of her upper extremities. Psyche: cooperative, but confused. Objective Labs Result Diagrams: 02/04/19 11:40 02/04/19 11:40 Labs: Laboratory Results - last 24 hr 02/04/19 02/04/19 02/04/19 11:40 11:40 11:40 WBC 8.8 RBC 4.97 Hgb 13.3 Hct 39.9 MCV 80.3 MCH 26.8 MCHC 33.4 RDW 15.2 H Plt Count 279 Neut % (Auto) 68.3 Lymph % (Auto) 18.4 L [place] % (Auto) 12.4 Eos % (Auto) 0.1 L Baso % (Auto) 0.8 Neut # (Auto) 6000 Lymph # (Auto) 1600 [place] # (Auto) 1100 H Eos # (Auto) 0 Baso # (Auto) 100 Sodium 148 H Potassium 3.2 L Chloride 106 Carbon Dioxide 25 BUN 10 Creatinine 0.70 Estimated GFR > 60.0 BUN/Creatinine Ratio 14.3 Glucose 112 H Calcium 10.0 Total Bilirubin 0.6 AST 31 ALT 17 Alkaline Phosphatase 93 Ammonia < 9.0 L Total Protein 9.1 H Albumin 4.9 Globulin 4.2 H Albumin/Globulin Ratio 1.2 Procalcitonin Prolactin Serum , Qual Urine RBC Urine WBC Ur Squamous Epith Cells Urine Bacteria Urine Mucus Ur Culture Indicated? Urine Opiates Screen Ur Oxycodone Screen Urine Methadone Screen Ur Barbiturates Screen U Tricyclic Antidepress Ur Phencyclidine Scrn Ur Amphetamines Screen U Methamphetamines Scrn Ur MDMA Scrn (Ecstasy) U Benzodiazepines Scrn Urine Cocaine Screen U Marijuana (THC) Screen 02/04/19 02/04/19 02/04/19 11:40 11:40 11:40 WBC RBC Hgb Hct MCV MCH MCHC RDW Plt Count Neut % (Auto) Lymph % (Auto) [place] % (Auto) Eos % (Auto) Baso % (Auto) Neut # (Auto) Lymph # (Auto) [place] # (Auto) Eos # (Auto) Baso # (Auto) Sodium Potassium Chloride Carbon Dioxide BUN Creatinine Estimated GFR BUN/Creatinine Ratio Glucose Calcium Total Bilirubin AST ALT Alkaline Phosphatase Ammonia Total Protein Albumin Globulin Albumin/Globulin Ratio Procalcitonin 0.09 Prolactin 25.0 H Serum , Qual Negative Urine RBC Urine WBC Ur Squamous Epith Cells Urine Bacteria Urine Mucus Ur Culture Indicated? Urine Opiates Screen Ur Oxycodone Screen Urine Methadone Screen Ur Barbiturates Screen U Tricyclic Antidepress Ur Phencyclidine Scrn Ur Amphetamines Screen U Methamphetamines Scrn Ur MDMA Scrn (Ecstasy) U Benzodiazepines Scrn Urine Cocaine Screen U Marijuana (THC) Screen 02/04/19 02/04/19 13:28 13:28 WBC RBC Hgb Hct MCV MCH MCHC RDW Plt Count Neut % (Auto) Lymph % (Auto) [place] % (Auto) Eos % (Auto) Baso % (Auto) Neut # (Auto) Lymph # (Auto) [place] # (Auto) Eos # (Auto) Baso # (Auto) Sodium Potassium Chloride Carbon Dioxide BUN Creatinine Estimated GFR BUN/Creatinine Ratio Glucose Calcium Total Bilirubin AST ALT Alkaline Phosphatase Ammonia Total Protein Albumin Globulin Albumin/Globulin Ratio Procalcitonin Prolactin Serum , Qual Urine RBC None seen Urine WBC 1-5/hpf Ur Squamous Epith Cells 5-10 /hpf H Urine Bacteria None seen Urine Mucus 2+ H Ur Culture Indicated? Cult not indicated Urine Opiates Screen Negative Ur Oxycodone Screen Negative Urine Methadone Screen Negative Ur Barbiturates Screen Negative U Tricyclic Antidepress Negative Ur Phencyclidine Scrn Negative Ur Amphetamines Screen Negative U Methamphetamines Scrn Negative Ur MDMA Scrn (Ecstasy) Negative U Benzodiazepines Scrn Negative Urine Cocaine Screen Negative U Marijuana (THC) Screen Negative Assessment & Plan Assessment & Plan narrative: Dayana Scott has been placed under involuntary psychiatric hold pending placement to a inpatient psychiatric facility. [facility] will not take her until she has been observed for 24 hours without seizure activity. The other psychiatric facilities in the area currently have no beds, but may have beds available in the morning. She will be placed in the ICU with one-to-one observation overnight and social work will work with her and her family member in the morning to get her placed. Her admission was discussed with both the day hospitalist, the nursing supervisor motor vehicle assembly, in consultation with her nurse proposal development manager. 1. Uncontrolled seizure disorder * She was given Keppra 1000 mg IV in the emergency department as well as her 1st dose orally of 750 mg which she is supposed to take twice daily. * Patient will be admitted with seizure precautions to the ICU. * Patient will need to be seizure-free times 24 hours prior to discharge to inpatient psychiatric facility. 2. Acute hyperkalemia with a potassium level of 3.2 * She will receive potassium 40 mEq p.o. x1 * Recheck potassium level in the morning 3. Acute metabolic encephalopathy, possibly caused by acute psychotic episode * Patient is on involuntary psychiatric hold with the expectation of transfer to a psychiatric facility in the morning. * She is currently deemed to not be a flight risk or violent. After consultation with the emergency physician, nursing supervisor motor vehicle assembly in conjunction with her adjunct nursing faculty, the day hospitalist, it was determined that the patient could be appropriately admitted to the ICU for tonight. * I have discussed her anti seizure medications with pharmacy and it does not appear that her anti-seizure medications should be causing her extra pyramidal symptoms or acute psychosis. Patient is admitted an inpatient as his/her stay requires close monitoring in the ICU. FEN: IV saline lock, regular diet, electrolytes in the morning VTE Prophylaxis: Bilateral Tristan hose, patient is active and ambulatory Disposition: Probable discharge to psychiatric facility hopefully in the morning Code status: Full code Admission time: 65 minutes Meds reconciled: Partial based on current med list Scores GCS [place] coma scale eye opening: Spontaneous [place] coma scale verbal response: Confused Jim coma scale motor response: Abnormal flexion [place] coma scale total score: 11 Quality VTE Deep Vein Thrombosis/Pulmonary Embolism Present on Admission: No
[2019-02-04] MEDS: POTASSIUM CHLORIDE 20 MEQ TAB 40 MEQ PO (22:42)
--- NOTE | 2019-02-04 23:29 | PC.NURSE ---
Verified with CLEMENT Armstrong that pt. is not on tele, Erin ivy not to place pt. on tele.
--- NOTE | 2019-02-04 23:39 | PC.NURSE ---
luh note pt cooperative, boyfriend at bedside. Pt starts answering questions, then stops mid sentence and loses train of thought. Frequently uses expansive dramatic arm gestures, such as arms flung wide. 1:1 sitter for safety.
[2019-02-05] VITALS (9 sets, daily range): BP systolic 115–137; BP diastolic 62–80; PULSE 62–91; RESP 16–20; TEMP 35.9–36.9; O2SAT 93–100
[2019-02-05] MEDS: IBUPROFEN 600 MG TABLET PO (02:17)
[2019-02-05 05:11] LABS: Add Manual Diff / Slide Review NO; Basophils Absolute Auto 100 /uL (0-100); Basophils Percent Auto 0.8 % (0-2); Eosinophils Absolute Auto 100 /uL (0-450); Eosinophils Percent Auto 0.8 % (2-4); Hematocrit 37.5 % (36-46); Hemoglobin 12.3 g/dL (12.0-16.0); Lymphocytes Absolute Auto 2300 /uL (1100-4500); Lymphocytes Percent Auto 24.9 % (25-40); Mean Corpuscular HGB Conc 32.8 % (30-36); Mean Corpuscular Hemoglobin 26.5 PG (26-34); Mean Corpuscular Volume 80.8 fL (80-100); Monocytes Absolute Auto 900 /uL (0-900); Monocytes Percent Auto 9.8 % (3-14); Neutrophils Absolute Auto 6000 /uL (1500-7000); Neutrophils Percent Auto 63.7 % (50-75); Platelet Count 233 X10^3/uL (150-400); Red Blood Cell Count 4.64 X10^6/uL (4.0-5.2); Red Cell Distribution Width 15.2 % (11.6-14.8); White Blood Cell Count 9.3 X10^3/uL (4.5-11.0)
[2019-02-05 05:24] LABS: Alanine Aminotransferase 18 IU/L (9-52); Albumin 4.3 g/dL (3.5-5.0); Albumin Globulin Ratio 1.2 (1.0-2.8); Alkaline Phosphatase 75 U/L (38-126); Aspartate Aminotransferase 23 IU/L (14-36); BUN Creatinine Ratio 18.3 (6-22); Bilirubin Total 0.6 mg/dL (0.2-1.3); Blood Urea Nitrogen 11 mg/dL (7-17); Calcium 9.4 mg/dL (8.4-10.2); Carbon Dioxide 24 mmol/L (22-32); Chloride 108 mmol/L (98-107); Estimated Glomerular Filt Rate > 60.0 mL/min (>60); Globulin 3.7 g/dL (1.7-4.1); Glucose 108 mg/dL (70-100); HEMOLYSIS < 15 (0-50); Potassium 3.5 mmol/L (3.4-5.1); Sodium 145 mmol/L (137-145)
--- NOTE | 2019-02-05 09:00 | PC.NURSE ---
Rec'd pt in bed resting comfortably with eyes closed and even/unlabored RR. Per report, pt had difficulty sleeping overnight. Plan to consolidate assessment/interventions/meds in order to facilitate rest. Pt has 1:1 sitter as well as family member at bedside. Will monitor.
[2019-02-05] MEDS: lamoTRIgine 100 MG TABLET 50 MG PO (09:32)
[2019-02-05] MEDS: levETIRAcetam 250 MG TABLET 1500 MG PO ×2 (09:33→22:03)
--- NOTE | 2019-02-05 10:37 | PC.NURSE ---
Addendum entered by Bony Arriola R.N. 02/05/19 14:54: Pt ambulating with steady gait around nurse's station without assistive device. Laughing/talking with boyfriend. Reports headache but declines tylenol at this time. I'll be ok. Addendum entered by Bony Arriola R.N. 02/05/19 12:20: 1145- Pt ambulate around nurses station several times with SBA only. Gait is steady. C/o generalized pain and is requesting motrin. Called to Dr. Haas and left message to return call regarding pt c/o pain and nothing is ordered. Spoke with Dr. Haas at 1215 who states she will soon round and discuss options for pain relief with pt. Pt is currently in bed sleeping with even/unlabored RR. Original Note: 0930- Woke pt up for assessment and meds. Pt awakens to verbal stimuli. Initially with flat affect and not answering questions but following commands with calm demeanor. Introduced self and role. Pt appears more relaxed and begins answering questions with short responses. She thinks she is in [place] and is surprised when her boyfriend at bedside tells her otherwise. Oriented pt to place, date/time, situation, and plan of care. She nods her head in understanding. Boyfriend states he spoke with pts mother regarding pt's condition and mother reportedly stated that pt experiences hallucinations for a short time after having seizures. Asked pt if she was currently experiencing hallucinations and/or delusions. She did not provide a response to this question. Pt was able to sit up in bed independently, swallowed pills whole without difficulty, and fed self a few bites of breakfast. Placed call light in reach and educated to use. Instructed pt to call for assistance prior to getting OOB or for any needs. Bed alarm, 1:1 sitter and boyfriend at bedside.
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
--- NOTE | 2019-02-05 18:44 | PM.PN.1 ---
Subjective Date Patient Seen: 02/05/19 Interval history: Dayana Scott is a 23-year-old female visiting from [place] with a past medical history significant for seizure disorder with several recent seizures the week prior to admission who presented with psychosis including hallucinations, delusions, and paranoia after multiple seizures. The patient is resting in bed comfortably. She is mildly somnolent but easily arousable. She states that she feels confused. She admits to ongoing delusions of spirits in the room with her. She is paranoid and easily distracted with eyes darting across the room and she states that she believes a family member and a girl from high school are after her. She endorses auditory hallucinations telling her to kill herself. She reports that she has experienced these symptoms after seizures in the past. Discussed ongoing psychosis and reiterated that her delusions, hallucinations and paranoia are not real. Encouraged the patient to report if her auditory hallucinations are becoming more prevalent or aggressive. She denies previous history of schizophrenia or bipolar disorder with psychosis. She has no family history of schizophrenia or bipolar disorder. She reports that she was treated for her seizures by a neurologist in [place], [place] and required multiple antiepileptic medications to control seizures. She stopped taking her antiepileptic because she ran out of insurance coverage with her divorce from her former and her medications are now too expensive and not financially affordable. Plan is to have patient discharged voluntarily to a Psychiatric Treatment Facility. The patient is unsure if she has insurance or not. She would like me to call her father and inform him of her hospitalization and current issues. She states she has a mild headache but has no other specific complaints and denies lightheadedness or dizziness, vision changes, chest pain, shortness of breath, nausea, vomiting, fever, chills, dysuria, diarrhea or constipation. She is voiding and eliminating without difficulty. She is up ambulating independently in the room. Exam Vital Signs (past 8 hours): - 02/05/19 13:45 02/05/19 16:00 Temperature 97.4 F L 96.6 F L Pulse Rate 78 62 Respiratory Rate 18 20 Blood Pressure 115/65 121/69 Pulse Oximetry 100 99 Oxygen Delivery Method Room Air Oxygen Flow Rate 0 Narrative Exam Narrative: General: Young female sitting in bed and in no acute distress, well-developed, well-nourished, mildly somnolent but easily arousable, withdrawn, paranoia looking toward right side of room, delusional, auditory hallucination otherwise appropriately interactive. HEENT: Normocephalic, atraumatic. External ears without defect. Pupils equal, round, and reactive to light. Anicteric sclerae, moist conjunctivae, and mild left lid lag. Neck: Supple with full range of motion. No lymphadenopathy or thyromegaly. Cardiovascular: Regular rate and rhythm without murmurs, rubs, or gallops appreciated. Pulmonary: Clear to auscultation bilaterally without crackles, wheezes, or rhonchi. Normal respiratory effort with no use of accessory muscles. Abdomen: Soft, bowel sounds present, non-tender, non-distended. No hepatosplenomegaly or masses appreciated. Extremities: No clubbing, cyanosis, or edema. Skin: Normal temperature, turgor, and texture; no rash, ulcers, or subcutaneous nodules appreciated. Neurological: Cranial nerves grossly intact. No appreciable nystagmus. Psychiatric: Patient is paranoid with eyes darting across room, auditory and visual hallucinations with delusions are present, patient is able to converse somewhat appropriately despite psychosis. She is very easily distracted and have mild tangential thinking. Objective Labs Result Diagrams: 02/05/19 04:58 02/05/19 04:58 Labs: Laboratory Results - last 24 hr 02/05/19 02/05/19 02/05/19 04:58 04:58 04:58 WBC 9.3 RBC 4.64 Hgb 12.3 Hct 37.5 MCV 80.8 MCH 26.5 MCHC 32.8 RDW 15.2 H Plt Count 233 Neut % (Auto) 63.7 Lymph % (Auto) 24.9 L [place] % (Auto) 9.8 Eos % (Auto) 0.8 L Baso % (Auto) 0.8 Neut # (Auto) 6000 Lymph # (Auto) 2300 [place] # (Auto) 900 Eos # (Auto) 100 Baso # (Auto) 100 Sodium 145 Potassium 3.5 Chloride 108 H Carbon Dioxide 24 BUN 11 Creatinine 0.60 Estimated GFR > 60.0 BUN/Creatinine Ratio 18.3 Glucose 108 H Calcium 9.4 Magnesium 2.0 Total Bilirubin 0.6 AST 23 ALT 18 Alkaline Phosphatase 75 Total Protein 8.0 Albumin 4.3 Globulin 3.7 Albumin/Globulin Ratio 1.2 Assessment & Plan Assessment & Plan narrative: Dayana Scott is a 23-year-old female visiting from [place] with a past medical history significant for seizure disorder with several recent seizures the week prior to admission who presented with psychosis including hallucinations, delusions, and paranoia. 1. Acute metabolic encephalopathy and psychosis, secondary to seizure disorder and possibly underlying psychiatric disorder, present on admission. Active. -Patient presented with psychosis and features including: Auditory hallucinations, delusions, and paranoia. Patient was initially placed on involuntary hold as she has voices actively telling her to kill herself. Patient is now willing to go voluntarily to psychiatric treatment facility. -Continue Keppra and Lamictal as below. -The patient may not have insurance and it has been difficult to find an inpatient psychiatric treatment facility that will accept the patient. Plan for psychiatric consultation if available and if unable to find a psychiatric treatment facility by Thursday02/07/2019. 2. Acute on chronic seizure disorder, uncontrolled, present on admission. Inactive. -Patient presented with psychosis after having several seizures. We a previous ?feels related seizures. Questionable underlying psychiatric condition such as schizophrenia or bipolar disorder with psychotic features. -Received Keppra 1000 mg IV x1 in the ED for loading dose. Continue Keppra 750 mg twice daily. In addition added Lamictal 50 mg daily as this is not only an antiepileptic but mood stabilizer for psychosis as above. Patient previously on Vimpat but is not financially affordable and unavailable on hospital formulary and unable to order in over the weekend, therefore, not a realistic option. -Continue seizure precautions. Patient is seizure-free for approximately 24-48 hours (varying accounts of when last seizure occurred. -Patient will need to be seizure-free x 24 hours prior to discharge to inpatient psychiatric treatment facility. 3. Acute hypokalemia, present on admission. Resolved. Initial potassium level 3.2. Received potassium chloride 40 mEq PO x1. Continue to monitor potassium level and replete as necessary With a potassium level of 3.2 Disposition: Patient likely to discharge to inpatient psychiatric treatment facility if and/or when available. Patient is deemed and ongoing high risk of harm to herself or others, therefore, an outpatient treatment or crisis center is inadequate for treatment of patient's current condition. Quality VTE Deep Vein Thrombosis/Pulmonary Embolism Present on Admission: No
--- NOTE | 2019-02-05 22:57 | PC.NURSE ---
luh note pt mostly sleeping this shift, but able to rouse. Woke pt up for bedtime meds. Pt said she wasn't hungry, but changed her mind when told macaroni and cheese was for dinner. pt denied visual hallucinations, but said voices in head still there, saying bad things, but she would not elaborate further. While eating dinner a short time later, pt's boyfriend came out of room and said pt was hallucinating, saying he was her baby's daddy (he is not). Did not recognize him. Sitter at bedside.
[2019-02-06] VITALS (9 sets, daily range): BP systolic 100–113; BP diastolic 53–69; PULSE 60–80; RESP 16–18; TEMP 36.2–36.6; O2SAT 97–100
--- NOTE | 2019-02-06 00:14 | PC.NURSE ---
Pt awake sitting up in bed. Significant other at bedside. When asked how she is doing she states I'm super hyper right now. A/O X 3. Denies any hallucinations. Denies SI/HI. Per significant other she is more herself. Denies pain. VSS. 1:1 sitter maintained. No seizure activity noted.
[2019-02-06 05:32] LABS: BUN Creatinine Ratio 14.3 (6-22); Blood Urea Nitrogen 10 mg/dL (7-17); Calcium 9.3 mg/dL (8.4-10.2); Carbon Dioxide 27 mmol/L (22-32); Chloride 107 mmol/L (98-107); Estimated Glomerular Filt Rate > 60.0 mL/min (>60); Glucose 102 mg/dL (70-100); HEMOLYSIS < 15 (0-50); Potassium 4.6 mmol/L (3.4-5.1); Sodium 142 mmol/L (137-145)
--- NOTE | 2019-02-06 08:31 | PC.NURSE ---
Pt briefly woke with VS. States, I'm just tired and went back to sleep. VSS. Will do formal assessment when pt awakens and is more participative. Boyfriend at bedside. 1:1 sitter. Bed alarm.
[2019-02-06] MEDS: lamoTRIgine 100 MG TABLET 50 MG PO (09:30)
[2019-02-06] MEDS: levETIRAcetam 250 MG TABLET 1500 MG PO ×2 (09:30→21:04)
--- NOTE | 2019-02-06 12:07 | CM.DPC ---
Addendum entered by NICOLE Singh 02/06/19 15:52: ADD: [facility] that [facility] could accept pt but worried she will end up with a huge bill if no insurance and they do not have the staff today to help with enrolling/checking on medical insurance. [facility] cannot hold a bed but they have openings and anticipate more discharges and therefore will call back in the morning to determine if our admissions counselors have gotten clarification on pt's medical insurance. NAVEED updated MD on discussion with [facility] and [facility] and [facility] still reviewing and possible assist from ED SW this evening. BF Addendum entered by NICOLE Singh 02/06/19 12:47: Return call from [facility] inquiring about ED and H&P documentation stating pt was ERNESTINE'd/involuntary. NAVEED clarified that [facility] was called by this SW yesterday and confirmed that [facility] was never officially dispatched and did not assess the pt for Involuntary tx and never made ERNESTINE but was admitted for medical stability for seizure disorder. NAVEED updated [facility] intake that pt is voluntary and a good candidate for short term stabilization/med management/dx. [facility] the remainder of the clinicals now knowing pt not ERNESTINE'd. BF Original Note: DCP Ongoing MH planning Per RN, pt slept fairly well last night after going to bed around 0100 this morning and continues to be sleepy this morning and not much of an appetite yet after feeling hyper last night. NAVEED emailed Admissions Counselors here at [facility] and confirmed that they do not have someone on staff today who can enroll/inquire about medical insurance but staff will be back tomorrow Thursday. NAVEED called [facility] and they confirm that currently they have openings for female voluntary pt's but that they do not have staff there to help enroll pt's in medical insurance and may need pt to be seen by our admissions counselors to determine medical insurance. NAVEED faxed clinicals to [facility] to review in case they can accept. NAVEED called [facility] and confirmed they have an open female voluntary bed and updated them on pt's unknown insurance situation and they do not feel that it is a barrier to accepting her. Faxed requested clinicals to fax #[phone] for review. NAVEED called [facility] and was placed on a waitlist and received call back stating they now have an open female bed and are requesting clinicals be faxed to [phone] to review to determine if they can accept. [facility], and [facility] are still full/at capacity. Plan: SW to follow for review of clinicals by [facility], [facility], and [facility] to determine if they can accept pt and if lack of insurance information will be a barrier to placement. NICOLE Singh
--- NOTE | 2019-02-06 12:52 | PM.PN.1 ---
Subjective Date Patient Seen: 02/06/19 Interval history: Dayana Scott is a 23-year-old female visiting from [place] with a past medical history significant for seizure disorder with several recent seizures the week prior to admission who presented with psychosis including hallucinations, delusions, and paranoia after multiple seizures. The patient is resting in bed comfortably. She is more awake and alert today. She no longer feels confused. She continues to experience paranoia, hallucinations, and delusions. She reports delusions of spirits in the room with her that are unchanged. She is slightly less paranoid per self report, as well as, her boyfriend's report. Per the patient's boyfriend, the patient began to be significantly paranoid and believe that he and the rest of hospital staff were against her yesterday evening to the extent that he left in order to help her calm down. He reports that she was wavering on her decision to go voluntarily to inpatient psychiatric treatment and that her mother had to talk her into it again. She continues to be easily distracted with her eyes darting across the room. She continues to believe that a family member and a girl from high school are after her. She endorses auditory hallucinations that are not as aggressive today but continue to tell her not to trust anyone around her. She denies that they are telling her to kill herself or harm herself in any way. She has no family history of schizophrenia or bipolar disorder. She denies headache, lightheadedness or dizziness, vision changes, chest pain, shortness of breath, nausea, vomiting, fever, chills, dysuria, or constipation. She does endorse chronic intermittent diarrhea with a loose bowel movement today. She is voiding and eliminating without difficulty. She is up ambulating independently in the room. Exam Vital Signs (past 8 hours): - 02/06/19 08:00 02/06/19 09:45 02/06/19 11:00 Temperature 97.2 F L 97.9 F Pulse Rate 80 60 Respiratory Rate 16 18 Blood Pressure 103/59 L 103/63 Pulse Oximetry 99 99 97 02/06/19 15:00 Temperature 97.8 F Pulse Rate 62 Respiratory Rate 16 Blood Pressure 113/69 Pulse Oximetry 100 Oxygen Delivery Method Room Air Oxygen Flow Rate 0 Narrative Exam Narrative: General: Young female sitting in bed and in no acute distress, well-developed, well-nourished, more alert and interactive today but still slightly withdrawn, paranoid looking toward right side of room, delusional, auditory hallucinations otherwise appropriately interactive. HEENT: Normocephalic, atraumatic. External ears without defect. Pupils equal, round, and reactive to light. Anicteric sclerae, moist conjunctivae, and mild left lid lag. Neck: Supple with full range of motion. No lymphadenopathy or thyromegaly. Cardiovascular: Regular rate and rhythm without murmurs, rubs, or gallops appreciated. Pulmonary: Clear to auscultation bilaterally without crackles, wheezes, or rhonchi. Normal respiratory effort with no use of accessory muscles. Abdomen: Soft, bowel sounds present, non-tender, non-distended. No hepatosplenomegaly or masses appreciated. Extremities: No clubbing, cyanosis, or edema. Skin: Normal temperature, turgor, and texture; no rash, ulcers, or subcutaneous nodules appreciated. Neurological: Cranial nerves grossly intact. Very subtle horizontal nystagmus. Psychiatric: Patient is paranoid with eyes darting across room, auditory and visual hallucinations with delusions are present, patient is able to converse appropriately despite psychosis. She is very easily distracted and has mild tangential thinking. Objective Labs Result Diagrams: 02/05/19 04:58 02/06/19 05:00 Labs: Laboratory Results - last 24 hr 02/06/19 05:00 Sodium 142 Potassium 4.6 Chloride 107 Carbon Dioxide 27 BUN 10 Creatinine 0.70 Estimated GFR > 60.0 BUN/Creatinine Ratio 14.3 Glucose 102 H Calcium 9.3 Assessment & Plan Assessment & Plan narrative: Dayana Scott is a 23-year-old female visiting from [place] with a past medical history significant for seizure disorder with several recent seizures the week prior to admission who presented with psychosis including hallucinations, delusions, and paranoia. 1. Acute metabolic encephalopathy and psychosis, secondary to seizure disorder and possibly underlying psychiatric disorder, present on admission. Active. -Patient presented with psychosis and features including: Auditory hallucinations, delusions, and paranoia. Patient was initially placed on involuntary hold as she has voices actively telling her to kill herself. She has wavered in regard to inpatient psychiatric treatment but is currently willing to go voluntarily to psychiatric treatment facility. -Continue Keppra and Lamictal as below. -The patient may not have insurance and it has been difficult to find an inpatient psychiatric treatment facility that will accept the patient. Plan for psychiatric consultation if available and if unable to find a psychiatric treatment facility by Thursday02/07/2019. 2. Acute on chronic seizure disorder, uncontrolled, present on admission. Inactive. -Patient presented with psychosis after having several seizures. We a previous ?feels related seizures. Questionable underlying psychiatric condition such as schizophrenia or bipolar disorder with psychotic features. -Received Keppra 1000 mg IV x1 in the ED for loading dose. Continue Keppra 750 mg twice daily. In addition added Lamictal 50 mg daily as this is not only an antiepileptic but mood stabilizer for psychosis as above. Patient previously on Vimpat but is not financially affordable and unavailable on hospital formulary and unable to order in over the weekend, therefore, not a realistic option. -Continue seizure precautions. Patient is seizure-free for approximately 24-48 hours (varying accounts of when last seizure occurred. -Patient will need to be seizure-free x 24 hours prior to discharge to inpatient psychiatric treatment facility. 3. Acute hypokalemia, present on admission. Resolved. -Now known to likely be secondary to chronic intermittent diarrhea possibly due to IBS. -Initial potassium level 3.2. Received potassium chloride 40 mEq PO x1. -Continue to monitor potassium level and replete as necessary. Disposition: Patient likely to discharge to inpatient psychiatric treatment facility if and/or when available. Patient is deemed and ongoing high risk of harm to herself or others, therefore, an outpatient treatment or crisis center is inadequate for treatment of patient's current condition. Quality VTE Deep Vein Thrombosis/Pulmonary Embolism Present on Admission: No
--- NOTE | 2019-02-06 13:48 | PC.NURSE ---
Pt slept most of the morning. Awoke pt a little after noon and encouraged her to eat lunch, walk, etc. She denies hallucinations/delusions and is answering orientation questions appropriately with clear speech. She was able to get OOB and walk around the nurses station several times. She requested to go to the chapel. Called to Dr. Haas who states ok for pt to go to [facility] with staff escort. Notified coordinator and security that pt is off unit. Pt returned to room safely in no acute distress. Reports diarrhea stools. Reported to Dr. Haas. Instructs to monitor.
--- NOTE | 2019-02-06 17:13 | PC.NURSE ---
Addendum entered by Anna Gould R.N. 02/06/19 21:15: 2115 - Pt intermittently sleeping. Reports feeling so tired today. Pt states that usual routine is bedtime late around 1 or 2 a.m. S.O. at bedside. Pt continues to deny hallucinations. Offered snack with HS meds. Seizure pads in place. Call light in reach. Original Note: 1630 - Pt sitting up in bed. Laughing and talking with S.O. Reviewed treatment plan with pt. Pt verbalized understanding. Pt denies hallucinations. Denies suicidal ideation. Reinforced safety and call light use. Call light in reach. Monitor.
--- NOTE | 2019-02-06 17:51 | CM.SWNOTE ---
PLATE SENSITIZER Follow up note PLATE SENSITIZER was asked by SW colleague, NICOLE Asencio to follow up with this patient to assist with discharge. PLATE SENSITIZER called [facility]. They de clined admission due to pt's complicated medical history. They explained that as a free standing psychiatric facility, they could not manage pt if she were to have any medical issues while a patient at their facility and would need to send her to the closest emergency department. PLATE SENSITIZER contacted [facility] to see if there were any additional facilities with openings. Other than those that Fernanda had already contacted, the only one mentioned was [facility]. PLATE SENSITIZER contacted them, . They do not currently have any bed availability, but anticipate openings tomorrow.
[2019-02-07] VITALS (7 sets, daily range): BP systolic 96–155; BP diastolic 47–81; PULSE 57–79; RESP 15–20; TEMP 36.3–36.8; O2SAT 98–99
[2019-02-07 05:11] LABS: Blood Urea Nitrogen 6 mg/dL (7-17); Carbon Dioxide 27 mmol/L (22-32); Chloride 104 mmol/L (98-107); Estimated Glomerular Filt Rate > 60.0 mL/min (>60); Glucose 102 mg/dL (70-100); HEMOLYSIS < 15 (0-50); Magnesium 1.8 mg/dL (1.6-2.3); Sodium 139 mmol/L (137-145)
[2019-02-07] MEDS: SODIUM CHLORIDE 0.9% FLUSH 10 ML IV ×2 (08:22→22:24)
[2019-02-07] MEDS: lamoTRIgine 100 MG TABLET 50 MG PO (08:28)
[2019-02-07] MEDS: levETIRAcetam 250 MG TABLET 1500 MG PO ×2 (08:31→21:08)
--- NOTE | 2019-02-07 08:56 | PC.NURSE ---
Addendum entered by Jackeline Car R.N. 02/07/19 11:54: Pt alert, oriented, cooperative, showered. C/O headache 01/19 tylenol given per patient request. Original Note: Pt alert, oriented, denies pain, hallucinations,appropriate, cooperative. SBA to bathroom, gait steady.
[2019-02-07] MEDS: ACETAMINOPHEN 325 MG TABLET 975 MG PO ×2 (11:52→21:08)
--- NOTE | 2019-02-07 12:53 | P.PN_ITS ---
Subjective Date Patient Seen: 02/07/19 Interval history: Dayana Scott is a 23-year-old female visiting from [place] with a past medical history significant for seizure disorder with several recent seizures the week prior to admission who presented with psychosis including hallucinations, delusions, and paranoia after multiple seizures. The patient is standing in room talking on phone and in no acute distress. She is no longer experiencing hallucinations or delusions. She continues to feel mildly paranoid but reports this has been a lifelong issue. Plan to have psychiatric evaluation today. She continues to endorse fatigue but otherwise has no complaints. She denies headache, lightheadedness or dizziness, vision changes, chest pain, shortness of breath, nausea, vomiting, fever, chills, d ysuria, diarrhea or constipation. She is voiding and eliminating without difficulty. She is up ambulating independently in the room. Exam Vital Signs (past 8 hours): - 02/07/19 07:59 02/07/19 08:37 02/07/19 12:00 Temperature 97.4 F L 98.1 F Pulse Rate 76 57 L Respiratory Rate 16 15 Blood Pressure 108/55 L 96/47 L Pulse Oximetry 98 98 99 Oxygen Delivery Method Room Air Oxygen Flow Rate 0 Narrative Exam Narrative: General: Young female sitting in bed and in no acute distress, well-developed, well-nourished, slightly withdrawn and does not make eye contact otherwise appropriately interactive. HEENT: Normocephalic, atraumatic. External ears without defect. Pupils equal, round, and reactive to light. Anicteric sclerae, moist conjunctivae, and mild left lid lag. Neck: Supple with full range of motion. No lymphadenopathy or thyromegaly. Cardiovascular: Regular rate and rhythm without murmurs, rubs, or gallops appreciated. Pulmonary: Clear to auscultation bilaterally without crackles, wheezes, or rhonchi. Normal respiratory effort with no use of accessory muscles. Abdomen: Soft, bowel sounds present, non-tender, non-distended. No hepatosplenomegaly or masses appreciated. Extremities: No clubbing, cyanosis, or edema. Skin: Normal temperature, turgor, and texture; no rash, ulcers, or subcutaneous nodules appreciated. Neurological: Cranial nerves grossly intact. Very subtle horizontal nystagmus. Psychiatric: Depressed mood, normal affect. Slightly withdrawn and does not make direct eye contact. Mildly paranoid but appropriately interactive. No hallucinations or delusions today. Objective Labs Result Diagrams: 02/05/19 04:58 02/07/19 04:44 Labs: Laboratory Results - last 24 hr 02/07/19 04:44 Sodium 139 Potassium 4.0 Chloride 104 Carbon Dioxide 27 BUN 6 L Creatinine 0.60 Estimated GFR > 60.0 BUN/Creatinine Ratio 10.0 Glucose 102 H Calcium 9.0 Magnesium 1.8 Assessment & Plan Assessment & Plan narrative: Dayana Scott is a 23-year-old female visiting from [place] with a past medical history significant for seizure disorder with several recent seizures the week prior to admission who presented with psychosis including hallucinations, delusions, and paranoia. 1. Acute metabolic encephalopathy and psychosis, likely secondary to neurological sequela of seizure, present on admission. Resolved. -Patient presented with psychosis and features including: Auditory hallucinations, delusions, and paranoia. Patient was initially placed on involuntary hold as she has voices actively telling her to kill herself. She has wavered in regard to inpatient psychiatric treatment but is currently willing to go voluntarily to psychiatric treatment facility. -Continue Keppra and Lamictal as below. -The patient does not have insurance and it has been difficult to find an inpatient psychiatric treatment facility that will accept the patient. Patient's symptoms have now resolved (other than mild long-standing paranoia) and at this point does not warrant inpatient psychiatric treatment. -Ordered psychiatry consultation, Dr. Shore, who evaluated the patient and does not believe that she has an underlying psychiatric condition other than depression and that her symptoms were likely a result of her seizures. Recommended if patient has return of hallucinations to give the patient Seroquel 50 mg and assess whether not her hallucinations improve. Please inform Dr. Shore if hallucinations return and the outcome of Seroquel as she would like to follow-up with her tomorrow if so. 2. Acute on chronic seizure disorder, uncontrolled, present on admission. Inactive. -Patient presented with psychosis after having several generalized tonic clonic seizures. -Received Keppra 1000 mg IV x1 in the ED for loading dose. Continue Keppra 750 mg twice daily. In addition added Lamictal 50 mg daily as this is not only an antiepileptic but mood stabilizer for psychosis as above. Patient previously on Vimpat but is not financially affordable and unavailable on hospital formulary and unable to order in over the weekend, therefore, not a realistic option. -Recommend Keppra and Lamictal levels when she returns to [place] as these are send out tests with long turn around times. -Continue seizure precautions. Patient has not had a seizure or seizure-like activity during entire hospitalization thus far. 3. Acute hypokalemia, present on admission. Resolved. -Now known to likely be secondary to chronic intermittent diarrhea possibly due to IBS. -Initial potassium level 3.2. Received potassium chloride 40 mEq PO x1. Potassium level now 4.0. -Continue to monitor potassium level and replete as necessary. Disposition: Patient likely to discharge home tomorrow if stable without seizures and if hallucinations or delusions do not return. Quality VTE Deep Vein Thrombosis/Pulmonary Embolism Present on Admission: No
--- NOTE | 2019-02-07 15:04 | CM.SWNOTE ---
RN ANESTHESIOLOGY Note: Reviewed previous RN ANESTHESIOLOGY notes indicating that psychiatric placement attempts have been made. Received return phone calls from [facility] indicating that they could not accommodate this patient. RN ANESTHESIOLOGY placed call to [facility] this AM, spoke with Carmen # [phone] option #2. Carmen reports that they are interested but would need to find out when patient had last seizure and if she is applied for Medicaid. RN ANESTHESIOLOGY sent email to admit counselors re: Medicaid process. Per response, patient not eligible for Medicaid because she is not a resident of [place], plus she told admit counselors that she was planning on returning to [place] as soon as she was released. RN ANESTHESIOLOGY passed on the above information to Dr. Haas. Per Dr. Haas patient doing better today and may not need inpatient psychiatric care. Dr. Haas is requesting that psychiatrist/Dr. Shore see patient today. Met briefly with patient explained RN ANESTHESIOLOGY role. Patient sleepy at time of visit. Patient reiterates that she plans to return to [place] as soon as she can. Patient denies current suicidal ideation. P: Pending. Psychiatry scheduled to see patient today for mental health evaluation. NICOLE Candelario Discharge Planning/Care Management CM Discharge Assessment Start: 02/07/19 15:01 Freq: Status: Active Protocol: Document 02/07/19 15:01 KJS (Rec: 02/07/19 15:04 KJS [id number]) Discharge Planning Assessment Assigned [employer] NICOLE Candelario Contact Information Gopi Perez (significant other ) [phone] Advance Directives? No History Provided By Patient Significant Other Medical Record Household Members family Independent with ADL's Yes Barriers to Discharge Yes Comment Self pay status lives in [place] . Patient requiring psychiatry consult for potential placement. Referrals Initiated Other Review Status In Process Next Review Type Continued Stay Review ED Crisis Response Assessment Start: 02/04/19 15:31 Freq: Status: Active Protocol: Document 02/04/19 15:31 DPL (Rec: 02/04/19 16:10 DPL [id number]) ED Crisis Response Assessment RN ANESTHESIOLOGY Assessment Type Mental Health Reason for RN ANESTHESIOLOGY Referral Mental health assessment/ evaluate for DCR need and inpatient placement. Referred by ED Provider-Dr. Kessler Presenting Problem Pt is here visiting here from [place], visiting her cousin in [place]. She presents as paranoid, unable to provide accurate self-history, has been hearing auditory hallucinations telling her to kill herself. She is not tracking well, and will observably demonstrate a flat, vacant affect throughout the assessment. She is a diagnosed epileptic, has not had any of her prescribed Keppra since the beginning of January, and has had at least 3-known seizures since January 16, per her cousin' s report. She is not oriented to time or place, and at times doesn't know who she is or what is happening. She did not recognize her own cousin who brought her in today, and has continually demonstrated bizarre behaviors in the exam room. Example: She stood up on the hospital bed and perched over the bedpan to urinate, then continued to stay standing upright in the middle of the bed. VOA/CMS check Yes Suicidal thoughts No Past Suicidal thoughts No Current Suicidal thoughts No Prior Suicide attempts No Number of suicide attempts 0 Current plan for self harm No Access to guns and weapons No Thoughts of harm to others No Past thoughts of harm to others No Current thoughts of harming others No Prior attempts to harm others No Number of attempts to harm others 0 Current plan to harm others No Risk factor comments Pt is here visiting her cousin , and resides in [place], [place], and was supposed to have returned home last Thursday. However, she had a siezure and needed to stay. She has decompensated mentally since that time. She has 2- young children who are currenly staying with their father, however pt is now so unstable and disoriented, that is is no longer safe for her to leave the hospital without mental health intervention. Relevant Medical History Epilepsy is the only known medical condition. Crisis Plan RN ANESTHESIOLOGY assessed pt as gravely disabled, request for DCR has been dispatched for ERNESTINE assessment. Action taken Transfer higher level
--- NOTE | 2019-02-07 17:44 | PM.CN ---
History of Present Illness Date Patient Seen: 02/07/19 Time Patient Seen: 13:00 Chief complaint: Altered mental state, headache,seizures Reason for consult: Evaluation of psychotic symptoms Requesting provider: Terrie Haas Narrative: CC: ?it's a little better today? HOSPITAL COURSE: Admitted 02/04/19 with AMS following seizure activity. At last 2 seizures reported by pt/SO in days prior to admission then change in behavior including delusions, paranoia, hallucinations. Loaded on IV keppra in ED, then continued on keppra. On 2 AED previously, but stopped in mo prior to admission. Initially on involuntary psychiatric hold with hallucinations and AH instructing her to end her life, but later voluntary for psych admit & no beds located due to lack of beds & lack of insurance. Started on lamotrigine 50mg daily for seizure prophylaxis, and potential psychiatric benefit. Hallucinations, paranoia, SI have slowly improved over course of admission. No antipsychotic medications, no benzodiazepines. Utox negative in ED hypokalemia on admission, now resolved VSS stable through admission COLLATERAL FROM STAFF: No hallucinations or SI reported today INTERVIEW: Roxy is lying in bed asleep upon interview attempt, woken up by RN then this provider, and sits up in bed for interview. She reports feeling better today, denies hallucinations or SI today. Reports seeing spirits previously, people she knew but looked different than myself, almost translucent. [place] voices she recognizes, often her ex saying she is not needed here anymore & should end her life. Denies SI today, denies plan or intent to end her life recently. Different than SI she has experienced in the past (see below). No previous hallucinations that she recalls. Reports running out of her seizure medication. Reports feeling safe as long as she resumes seizure meds. Reports having SI since about 11yo, has made suicide attempts. Most recent attempt at the start of this year, OD on pills I don't remember which ones fell asleep, did not tell anyone or seek medical attention. States that recent experiences were very different than suicidal thoughts that she gets at times. Reports h/o depression. Took medications once, but of course I stopped, denies consistent treatment. Reports the reason I am here is my children and reports having 2 kids, 4yo & almost 1yo. Currently with their father in [place]. References ex several times during our interview, then later clarifies she is still . Staying in [place] recently with her boyfriend no one was taking care of me at home. Reports living with her parents in [place] prior to staying in [place]. My parents are mad at me because I traveled out of state and didn't tell anyone. Denies manic symptoms, decreased need for sleep, change in behavior (aside from abrupt travel), racing thoughts, talking quickly. Reports not getting along well with her mom, but her mom is trying more recently. Reports feeling safe with current SO, he's angry sometimes but he's working on it. Denies feeling threatened. Reports being diagnosed with seizure disorder in 2014 or 2016, has been taking keppra since that time. Thinks she has taken lamotrigine in the past, isn't sure. Her dad is a nurse, helps with medical info/appts. PAST PSYCHIATRIC HISTORY: No inpatient psych, h/o depression with SI since childhood, +SA last in Jul 2018 OD on pills no medical care; at least one antidepressant trial but none consistent FAMILY HISTORY: no known history of depression or bipolar disorder SOCIAL HISTORY: currently staying with SO in [place], but , family in [place], 2 small children DEVELOPMENTAL HISTORY: mentions not getting along well with mom, one older brother and one younger sister PCP: none active SIGNIFICANT MEDICAL HISTORY: seizure disorder maintained on 2 AED [facility] Medical History Acute metabolic encephalopathy (Acute) Hypokalemia (Acute) Anemia (Acute) Epilepsy (Acute) Social History household members: family Smoking Status: Former smoker alcohol intake: current Social History household members: family Smoking Status: Former smoker alcohol intake: current Meds Home Medications Medication Instructions Recorded Confirmed Type Vimpat 50 mg PO BID 01/17/19 02/04/19 History levetiracetam [Keppra] 1,500 mg PO BID 01/17/19 02/04/19 History ibuprofen 1 dose PO PRN PRN 02/04/19 02/04/19 History Allergies Allergy/AdvReac Type Severity Reaction Status Date / Time No Known Drug Allergies Allergy Verified 01/16/19 20:49 Exam Vital Signs (past 8 hours): - 02/07/19 12:00 02/07/19 13:29 02/07/19 16:07 Temperature 98.1 F 98.3 F 97.3 F L Pulse Rate 57 L 77 79 Respiratory Rate 15 16 20 Blood Pressure 96/47 L 155/81 H 102/54 L Pulse Oximetry 99 99 98 Oxygen Delivery Method Room Air Oxygen Flow Rate 0 Narrative Exam Narrative: MENTAL STATUS EXAM Appearance: young female, dark hair, wearing hospital garb, groomed Behavior: cooperative, fair eye contact (avoids at times), +psychomotor slowing, no tremor or involuntary movements observed Gait: not observed (sitting in bed) Speech: slow rate, normal volume, slightly monotone Mood: ok Affect: Congruent with content, mildly anxious, ranges from constricted to normal during interview & brightens appropriately at times Thought Process: Linear, concrete, goal-directed Thought Content: Denies suicidal ideation, denies homicidal ideation, denies hallucinations, no clear evidence of paranoia today Attention: mildly distractible Orientation: Oriented to person place and time Memory: Intact for interview, not formally tested Insight: Fair-limited Judgment: Fair-limited Objective Labs Result Diagrams: 02/05/19 04:58 02/07/19 04:44 Labs: Laboratory Results - last 24 hr 02/07/19 04:44 Sodium 139 Potassium 4.0 Chloride 104 Carbon Dioxide 27 BUN 6 L Creatinine 0.60 Estimated GFR > 60.0 BUN/Creatinine Ratio 10.0 Glucose 102 H Calcium 9.0 Magnesium 1.8 Assessment & Plan (1) Postictal psychosis: Current visit: Yes Status: Suspected (2) Acute psychosis: Current visit: Yes Status: Acute (3) Seizure: Current visit: Yes Status: Acute Assessment & Plan narrative: ASSESSMENT: Roxy Scott is a 23-year-old female with known epilepsy admitted for altered mental status following seizure activity, including hallucinations and paranoia. I feel that her presentation is most consistent with postictal psychosis, given the presentation within 72h of reported seizure activity, known epilepsy and off AED medication, and slow resolution of psychotic symptoms during hospital stay. Postictal psychosis can present even after a lucid period of 48-72h. Although she is in the age range of initial onset bipolar disorder I do not see evidence of manic symptoms; and some resolution of psychotic symptoms without antipsychotic medication argues against a primary psychotic disorder like schizophrenia. If hallucinations or paranoia recur during hospital stay, I recommend trial of antipsychotic medication like quetiapine to alleviate symptoms, as well as to assess response to medication. Upon my exam today, I do not feel that inpatient psychiatry admission is needed, as long as improvement continues. If suicidality recurs, I am happy to continue involvement in this case as a voluntary psychiatric bed for this patient will be quite difficult to obtain given insurance limitations. If lamotrigine is appropriate in the context of epilepsy treatment, there is no reason to stop from a psychiatric perspective. It is most effective in treating bipolar depression, which I do not see current evidence for, and although it does not directly treat psychosis it will also not worsen it. DIAGNOSES: Unspecified psychosis Rule out postictal psychosis Major depressive disorder by history RECOMMENDATIONS: - If hallucinations recur during hospital stay, consider dose of quetiapine 50mg to see if this effectively treats psychotic symptoms - OK to continue lamotrigine 50mg daily and continue titration as outpatient if providing benefit for seizure treatment - If hallucinations, paranoia, or severe suicidal thoughts recur after discharge, recommend presenting to the ED instead of calling mental health crisis line, to rule out seizure activity as cause - Recommend outpatient mental healthcare for depression - Pt felt it would be helpful for her father to know these recommendations as well, as she may forget. Appreciate primary team's help in communication upon discharge Thank you for involving me in this patient's care. I will plan to chart review in the morning to f/u on symptoms, and will f/u tomorrow if symptoms are not consistently improved. Please contact me with questions or concerns at [phone]. Time Spent With Patient Time with patient: 25 - 35 minutes
--- NOTE | 2019-02-07 17:49 | P.CONS_ITS ---
History of Present Illness Date Patient Seen: 02/07/19 Time Patient Seen: 13:00 Chief complaint: Altered mental state, headache,seizures Reason for consult: Evaluation of psychotic symptoms Requesting provider: Terrie Haas Narrative: CC: ?it's a little better today? HOSPITAL COURSE: Admitted 02/04/19 with AMS following seizure activity. At last 2 seizures reported by pt/SO in days prior to admission then change in behavior including delusions, paranoia, hallucinations. Loaded on IV keppra in ED, then continued on keppra. On 2 AED previously, but stopped in mo prior to admission. Initially on involuntary psychiatric hold with hallucinations and AH instructing her to end her life, but later voluntary for psych admit & no beds located due to lack of beds & lack of insurance. Started on lamotrigine 50mg daily for seizure prophylaxis, and potential psychiatric benefit. Hallucinations, paranoia, SI have slowly improved over course of admission. No antipsychotic medications, no benzodiazepines. Utox negative in ED hypokalemia on admission, now resolved VSS stable through admission COLLATERAL FROM STAFF: No hallucinations or SI reported today INTERVIEW: Roxy is lying in bed asleep upon interview attempt, woken up by RN then this provider, and sits up in bed for interview. She reports feeling better today, denies hallucinations or SI today. Reports seeing spirits previously, people she knew but looked different than myself, almost translucent. [place] voices she recognizes, often her ex saying she is not needed here anymore & should end her life. Denies SI today, denies plan or intent to end her life recently. Different than SI she has experienced in the past (see below). No previous hallucinations that she recalls. Reports running out of her seizure medication. Reports feeling safe as long as she resumes se izure meds. Reports having SI since about 11yo, has made suicide attempts. Most recent attempt at the start of this year, OD on pills I don't remember which ones fell asleep, did not tell anyone or seek medical attention. States that recent experiences were very different than suicidal thoughts that she gets at times. Reports h/o depression. Took medications once, but of course I stopped, d enies consistent treatment. Reports the reason I am here is my children and reports having 2 kids, 4yo & almost 1yo. Currently with their father in [place]. References ex several times during our interview, then later clarifies she is still . Staying in [place] recently with her boyfriend no one was taking care of me at home. Reports living with her parents in [place] prior to staying in [place]. My parents are mad at me because I traveled out of state and didn't tell anyone. Denies manic symptoms, decreased need for sleep, change in behavior (aside from abrupt travel), racing thoughts, talking quickly. Reports not getting along well with her mom, but her mom is trying more recently. Reports feeling safe with current SO, he's angry sometimes but he's working on it. Denies feeling threatened. Reports being diagnosed with seizure disorder in 2014 or 2015, has been taking keppra since that time. Thinks she has taken lamotrigine in the past, isn't sure. Her dad is a nurse, helps with medical info/appts. PAST PSYCHIATRIC HISTORY: No inpatient psych, h/o depression with SI since childhood, +SA last in Jul 2018 OD on pills no medical care; at least one antidepressant trial but none consistent FAMILY HISTORY: no known history of depression or bipolar disorder SOCIAL HISTORY: currently staying with SO in [place], but , family in [place], 2 small children DEVELOPMENTAL HISTORY: mentions not getting along well with mom, one older brother and one younger sister PCP: none active SIGNIFICANT MEDICAL HISTORY: seizure disorder maintained on 2 AED [facility] Medical History Acute metabolic encephalopathy (Acute) Hypokalemia (Acute) Anemia (Acute) Epilepsy (Acute) Social History household members: family Smoking Status: Former smoker alcohol intake: current Social History household members: family Smoking Status: Former smoker alcohol intake: current Meds Home Medications Medication Instructions Recorded Confirmed Type Vimpat 50 mg PO BID 01/17/19 02/04/19 History levetiracetam [Keppra] 1,500 mg PO BID 01/17/19 02/04/19 History ibuprofen 1 dose PO PRN PRN 02/04/19 02/04/19 History Allergies Allergy/AdvReac Type Severity Reaction Status Date / Time No Known Drug Allergies Allergy Verified 01/16/19 20:49 Exam Vital Signs (past 8 hours): - 02/07/19 12:00 02/07/19 13:29 02/07/19 16:07 Temperature 98.1 F 98.3 F 97.3 F L Pulse Rate 57 L 77 79 Respiratory Rate 15 16 20 Blood Pressure 96/47 L 155/81 H 102/54 L Pulse Oximetry 99 99 98 Oxygen Delivery Method Room Air Oxygen Flow Rate 0 Narrative Exam Narrative: MENTAL STATUS EXAM Appearance: young female, dark hair, wearing hospital garb, groomed Behavior: cooperative, fair eye contact (avoids at times), +psychomotor slowing, no tremor or involuntary movements observed Gait: not observed (sitting in bed) Speech: slow rate, normal volume, slightly monotone Mood: ok Affect: Congruent with content, mildly anxious, ranges from constricted to normal during interview & brightens appropriately at times Thought Process: Linear, concrete, goal-directed Thought Content: Denies suicidal ideation, denies homicidal ideation, denies hallucinations, no clear evidence of paranoia today Attention: mildly distractible Orientation: Oriented to person place and time Memory: Intact for interview, not formally tested Insight: Fair-limited Judgment: Fair-limited Objective Labs Result Diagrams: 02/05/19 04:58 02/07/19 04:44 Labs: Laboratory Results - last 24 hr 02/07/19 04:44 Sodium 139 Potassium 4.0 Chloride 104 Carbon Dioxide 27 BUN 6 L Creatinine 0.60 Estimated GFR > 60.0 BUN/Creatinine Ratio 10.0 Glucose 102 H Calcium 9.0 Magnesium 1.8 Assessment & Plan (1) Postictal psychosis: Current visit: Yes Status: Suspected (2) Acute psychosis: Current visit: Yes Status: Acute (3) Seizure: Current visit: Yes Status: Acute Assessment & Plan narrative: ASSESSMENT: Roxy Scott is a 23-year-old female with known epilepsy admitted for altered mental status following seizure activity, including hallucinations and paranoia. I feel that her presentation is most consistent with postictal psychosis, given the presentation within 72h of reported seizure activity, known epilepsy and off AED medication, and slow resolution of psychotic symptoms during hospital stay. Postictal psychosis can present even after a lucid period of 48-72h. Although she is in the age range of initial onset bipolar disorder I do not see evidence of manic symptoms; and some resolution of psychotic symptoms without antipsychotic medication argues against a primary psychotic disorder like schizophrenia. If hallucinations or paranoia recur during hospital stay, I recommend trial of antipsychotic medication like quetiapine to alleviate symptoms, as well as to assess response to medication. Upon my exam today, I do not feel that inpatient psychiatry admission is needed, as long as improvement continues. If suicidality recurs, I am happy to continue involvement in this case as a voluntary psychiatric bed for this patient will be quite difficult to obtain given insurance limitations. If lamotrigine is appropriate in the context of epilepsy treatment, there is no reason to stop from a psychiatric perspective. It is most effective in treating bipolar depression, which I do not see current evidence for, and although it does not directly treat psychosis it will also not worsen it. DIAGNOSES: Unspecified psychosis Rule out postictal psychosis Major depressive disorder by history RECOMMENDATIONS: - If hallucinations recur during hospital stay, consider dose of quetiapine 50mg to see if this effectively treats psychotic symptoms - OK to continue lamotrigine 50mg daily and continue titration as outpatient if providing benefit for seizure treatment - If hallucinations, paranoia, or severe suicidal thoughts recur after discharge, recommend presenting to the ED instead of calling mental health crisis line, to rule out seizure activity as cause - Recommend outpatient mental healthcare for depression - Pt felt it would be helpful for her father to know these recommendations as well, as she may forget. Appreciate primary team's help in communication upon discharge Thank you for involving me in this patient's care. I will plan to chart review in the morning to f/u on symptoms, and will f/u tomorrow if symptoms are not consistently improved. Please contact me with questions or concerns at [phone]. Time Spent With Patient Time with patient: 25 - 35 minutes
--- NOTE | 2019-02-07 22:18 | PC.NURSE ---
luh note pt denies hallucinations and suicidal thoughts. Significant other confirms this. Pt wanted to sleep through dinner, but Dr. Haas asked to have pt be more wakeful in daytime. Pt stayed awake from 17:30, and continues to be awake, laying in bed using cell phone.
[2019-02-08 05:25] VITALS: O2SAT 97
[2019-02-08] MEDS: ACETAMINOPHEN 325 MG TABLET 975 MG PO (05:28)
[2019-02-08 05:33] VITALS: BP 118/74; PULSE 77; RESP 18; TEMP 36.3; O2SAT 96
--- NOTE | 2019-02-08 06:23 | PC.NURSE ---
Patient slept throughout the night, allowed her to sleep. When awake in am, denies auditory or visual hallucinations, denies thoughts of self harm. Tylenol given for sore tongue VSS. Boyfriend has been in room all night.
--- NOTE | 2019-02-08 09:18 | PC.NURSE ---
pt allowed to sleep in- not disturbed at this time
[2019-02-08] MEDS: levETIRAcetam 250 MG TABLET 1500 MG PO (10:24)
[2019-02-08] MEDS: lamoTRIgine 100 MG TABLET 50 MG PO (10:25)
[2019-02-08 10:28] VITALS: BP 115/70; PULSE 80; RESP 15; TEMP 36.4; O2SAT 97
--- NOTE | 2019-02-08 10:48 | PM.DS.1 ---
History of Present Illness Date Patient Seen: 02/08/19 Chief complaint: Altered mental state, headache,seizures Narrative: Dayana Scott is a 23-year-old female, visiting from [place] and has been in this state for the better part of January. She has a seizure disorder and apparently a new onset mental illness with a presentation of hallucinations and delirium. She presented to the emergency department approximately 6 hours ago after having a total of 4 seizures over the last 2 days. She is accompanied by her cousin who actually videotaped her seizures and he states that she has been unable to take her medications because she ran out of them. She currently takes Vimpat and Keppra and from what little I was able to ascertain, it appears that she stop taking her antiseizure medications when she lost medical coverage when her was discharged from service. The cousin states on Thursday of this week he observed her to have for seizures. Two of them lasted from 4-5 minutes and included both abnormal movements and abnormal breathing. He also stated that she was making strange vocalizing sounds. The other 2 seizures he states lasted for approximately 1 minute. The following day Thursday, he found her at his home with her face swollen bruise and ascertained that she had had another seizure. The patient was actually seen on January 16 after having had a seizure and swallowing a partial dental appliance which had to be endoscopically removed by surgery. Discharge Providers Date of admission: 02/04/19 20:07 Discharge Date: 02/08/19 Consults: 02/04/19 13:22 Consult to Beehive Kiln Charcoal Burner Stat Comment: paranoia, seizures, hallucinations no hx of psych 02/04/19 20:16 Consult to Discharge Planning Routine Comment: Patient is on an involuntary hold Consult to Beehive Kiln Charcoal Burner Routine Comment: See discharge planning order. 02/04/19 21:36 Consult to Dietitian, Adult Routine Comment: Reason For Exam: admission assessment at risk 02/07/19 08:27 Consult to Physician Routine Comment: Consulting Provider: Primo Shore Reason for consultation: psychosis after seizures Has provider been notified: Yes Discharge provider: Gia Jasso MD Summary Discharge Diagnosis: 1. Seizure Disorder 2. Post Ictal Hallucinations/Delusions-resolved 3. Depression Hospital Course: Patient admitted to the hospital following 4 episodes of seizures. She was lethargic post ictally initially. Patient become paranoid with auditory and visual hallucinations. Patient was placed back on anti epileptic medications. Her seizures resolved. Patient had slow but steady resolution of hallucinations and delusions. She was initially scheduled for voluntary admission to a psychiatric unit but no beds were available. The patient was evaluated by Dr. Shore from psychiatry who concurred with her medical management. Patient had no further seizures and complete resolution of hallucinations. She was deemed appropriate for discharge home. The patient will be returning to [place] in the next few days. Status at Discharge Cognitive/behavioral status at discharge: oriented Functional status at discharge: independent ambulation Overall status at discharge: patient is back to baseline Time Spent with Patient Less than 30 minutes Exam Vital Signs (past 8 hours): - 02/08/19 05:25 02/08/19 05:33 02/08/19 10:28 Temperature 97.4 F L 97.6 F Pulse Rate 77 80 Respiratory Rate 18 15 Blood Pressure 118/74 115/70 Pulse Oximetry 97 96 97 Oxygen Delivery Method Room Air Oxygen Flow Rate 0 Narrative Exam Narrative: Pleasant female, awake alert and in no acute distress. No hallucinations Lungs: Clear to auscultation CV: RRR nl Sl S2 Abd: soft/ non tender/ non distended Ext: no edema Objective Labs Result Diagrams: 02/05/19 04:58 02/07/19 04:44 Discharge Plan Discharge Plan Discharge Problem: Seizure, Acute psychosis Patient Disposition: Home Discharge Med Rec/Prescriptions Prescriptions: New levetiracetam 250 mg Tablet 1,500 mg PO BID 30 Days Qty: 360 RF: 0 lamotrigine [Lamictal] 100 mg Tablet 50 mg PO DAILY 60 Days RF: 0 Continued ibuprofen 200 mg Tablet 1 dose PO PRN PRN (Reason: pain or headache) RF: 0 Discontinued levetiracetam [Keppra] 750 mg Tablet 1,500 mg PO BID RF: 0 Vimpat 50 mg Tablet 50 mg PO BID RF: 0 Provider Discharge Instructions Diet: Diet as Tolerated Discharge Data Attending Provider: Erin Valero Admit Date/Time: 02/04/19 20:07 Quality VTE Deep Vein Thrombosis/Pulmonary Embolism Present on Admission: No
--- NOTE | 2019-02-08 10:52 | P.DS_ITS ---
History of Present Illness Date Patient Seen: 02/08/19 Chief complaint: Altered mental state, headache,seizures Narrative: Dayana Scott is a 23-year-old female, visiting from [place] and has been in this state for the better part of January. She has a seizure disorder and apparently a new onset mental illness with a presentation of hallucinations and delirium. She presented to the emergency department approximately 6 hours ago after having a total of 4 seizures over the last 2 days. She is accompanied by her cousin who actually videotaped her seizures and he states that she has been unable to take her medications because she ran out of them. She currently takes Vimpat and Keppra and from what little I was able to ascertain, it appears that she stop taking her antiseizure medications when s he lost medical coverage when her was discharged from service. The cousin states on Thursday of this week he observed her to have for seizures. Two of them lasted from 4-5 minutes and included both abnormal movements and abnormal breathing. He also stated that she was making strange vocalizing sounds. The other 2 seizures he states lasted for approximately 1 minute. The following day Thursday, he found her at his home with her face swollen bruise and ascertained that she had had another seizure. The patient was actually seen on January 16 after having had a seizure and swallowing a partial dental appliance which had to be endoscopically removed by surgery. Discharge Providers Date of admission: 02/04/19 20:07 Discharge Date: 02/08/19 Consults: 02/04/19 13:22 Consult to Railcar Brake Operator Stat Comment: paranoia, seizures, hallucinations no hx of psych 02/04/19 20:16 Consult to Discharge Planning Routine Comment: Patient is on an involuntary hold Consult to Railcar Brake Operator Routine Comment: See discharge planning order. 02/04/19 21:36 Consult to Dietitian, Adult Routine Comment: Reason For Exam: admission assessment at risk 02/07/19 08:27 Consult to Physician Routine Comment: Consulting Provider: Primo Shore Reason for consultation: psychosis after seizures Has provider been notified: Yes Discharge provider: Gia Jasso MD Summary Discharge Diagnosis: 1. Seizure Disorder 2. Post Ictal Hallucinations/Delusions-resolved 3. Depression Hospital Course: Patient admitted to the hospital following 4 episodes of seizures. She was lethargic post ictally initially. Patient become paranoid with auditory and visual hallucinations. Patient was placed back on anti epileptic medications. Her seizures resolved. Patient had slow but steady resolution of hallucinations and delusions. She was initially scheduled for voluntary admission to a psychiatric unit but no beds were available. The patient was eval uated by Dr. Shore from psychiatry who concurred with her medical management. Patient had no further seizures and complete resolution of hallucinations. She was deemed appropriate for discharge home. The patient will be returning to [place] in the next few days. Status at Discharge Cognitive/behavioral status at discharge: oriented Functional status at discharge: independent ambulation Overall status at discharge: patient is back to baseline Time Spent with Patient Less than 30 minutes Exam Vital Signs (past 8 hours): - 02/08/19 05:25 02/08/19 05:33 02/08/19 10:28 Temperature 97.4 F L 97.6 F Pulse Rate 77 80 Respiratory Rate 18 15 Blood Pressure 118/74 115/70 Pulse Oximetry 97 96 97 Oxygen Delivery Method Room Air Oxygen Flow Rate 0 Narrative Exam Narrative: Pleasant female, awake alert and in no acute distress. No hallucinations Lungs: Clear to auscultation CV: RRR nl Sl S2 Abd: soft/ non tender/ non distended Ext: no edema Objective Labs Result Diagrams: 02/05/19 04:58 02/07/19 04:44 Discharge Plan Discharge Plan Discharge Problem: Seizure, Acute psychosis Patient Disposition: Home Discharge Med Rec/Prescriptions Prescriptions: New levetiracetam 250 mg Tablet 1,500 mg PO BID 30 Days Qty: 360 RF: 0 lamotrigine [Lamictal] 100 mg Tablet 50 mg PO DAILY 60 Days RF: 0 Continued ibuprofen 200 mg Tablet 1 dose PO PRN PRN (Reason: pain or headache) RF: 0 Discontinued levetiracetam [Keppra] 750 mg Tablet 1,500 mg PO BID RF: 0 Vimpat 50 mg Tablet 50 mg PO BID RF: 0 Provider Discharge Instructions Diet: Diet as Tolerated Discharge Data Attending Provider: Erin Valero Admit Date/Time: 02/04/19 20:07 Quality VTE Deep Vein Thrombosis/Pulmonary Embolism Present on Admission: No
--- NOTE | 2019-02-08 10:58 | P.DS_ITS ---
History of Present Illness Chief complaint: Altered mental state, headache,seizures Narrative: Dayana Scott is a 23-year-old female, visiting from [place] and has been in this state for the better part of January. She has a seizure disorder and apparently a new onset mental illness with a presentation of hallucinations and delirium. She presented to the emergency department approximately 6 hours ago after having a total of 4 seizures over the last 2 days. She is accompanied by her cousin who actually videotaped her seizures and he states that she has been unable to take her medications because she ran out of them. She currently takes Vimpat and Keppra and from what little I was able to ascertain, it appears that she stop taking her antiseizure medications when she lost medical coverage when her was discharged from service. The cousin states on Thursday of this week he observed her to have for seizures. Two of them lasted from 4-5 minutes and included both abnormal movements and abnormal breathing. He also stated that she was making strange vocalizing sounds. The other 2 seizures he states lasted for approximately 1 minute. The following day Thursday, he found her at his home with her face swollen bruise and ascertained that she had had another seizure. The patient was actually seen on January 16 after having had a seizure and swallowing a partial dental appliance which had to be endoscopically removed by surgery. Discharge Providers Date of admission: 02/04/19 20:07 Discharge Date: 02/08/19 Consults: 02/04/19 13:22 Consult to Research Methodologist Stat Comment: paranoia, seizures, hallucinations no hx of psych 02/04/19 20:16 Consult to Discharge Planning Routine Comment: Patient is on an involuntary hold Consult to Research Methodologist Routine Comment: See discharge planning order. 02/04/19 21:36 Consult to Dietitian, Adult Routine Comment: Reason For Exam: admission assessment at risk 02/07/19 08:27 Consult to Physician Routine Comment: Consulting Provider: Primo Shore Reason for consultation: psychosis after seizures Has provider been notified: Yes Discharge provider: Gia Jasso MD Exam Vital Signs (past 8 hours): - 02/08/19 05:25 02/08/19 05:33 02/08/19 10:28 Temperature 97.4 F L 97.6 F Pulse Rate 77 80 Respiratory Rate 18 15 Blood Pressure 118/74 115/70 Pulse Oximetry 97 96 97 Oxygen Delivery Method Room Air Oxygen Flow Rate 0 Objective Labs Result Diagrams: 02/05/19 04:58 02/07/19 04:44 Discharge Plan Discharge Plan Patient Disposition: Home Discharge Med Rec/Prescriptions Prescriptions: New levetiracetam 250 mg Tablet 1,500 mg PO BID 30 Days Qty: 360 RF: 0 lamotrigine [Lamictal] 100 mg Tablet 50 mg PO DAILY 60 Days RF: 0 Continued ibuprofen 200 mg Tablet 1 dose PO PRN PRN (Reason: pain or headache) RF: 0 Discontinued levetiracetam [Keppra] 750 mg Tablet 1,500 mg PO BID RF: 0 Vimpat 50 mg Tablet 50 mg PO BID RF: 0 Provider Discharge Instructions Diet: Diet as Tolerated Discharge Data Attending Provider: Erin Valero Admit Date/Time: 02/04/19 20:07 Quality VTE Deep Vein Thrombosis/Pulmonary Embolism Present on Admission: No
--- NOTE | 2019-02-08 12:24 | CM.DPC ---
DCP/Final Note: Reviewed chart. Spoke with Dr. Jasso in AM rounds. She reports that patient medically stable for discharge home today. Reviewed Dr. Shore's note indicating patient cleared to go home from psychiatric standpoint if no behavioral health changes occur. Spoke with RN/Sandy and she reports patient doing better today. Boyfriend at bedside and nursing staff have no concerns regarding patient discharging today. WRAPAROUND FACILITATOR attempted to meet with patient prior to departure but she had already left. RN reports that patient indicated that she plans to return to [facility] within the next 48hrs. P: D/C today. NICOLE Candelario
== END 2019-02-08 12:01 | disposition home or self-care (01) | DRG 101 ==
LOC: ED 19:50 → ICU 02-05 07:01
PROVIDERS: Internal Medicine; Admitting Provider Nurse Practitioner Family; Emergency Provider Emergency Medicine; Visit Provider Nurse Practitioner Family
DX: G40.909 Epilepsy, unspecified, not intractable, without status epilepticus (principal); E87.6 Hypokalemia; F06.8 Other specified mental disorders due to known physiological condition
CPT/HCPCS: 36415; 36591; 70450; 71045; 80048; 80053; 80305; 81003; 81015; 81025; 82140; 82962; 83735; 84145; 84146; 84703; 85025; 93005; 93041; 96365; 99285; J1953

== ENCOUNTER 2019-04-25 23:23 | Observation (INO) | payer OTHER, MEDICAID, SELFPAY ==
[2019-02-04 20:17] VITALS: BMI 27.3
[2019-04-25 23:27] VITALS: BP 107/50; PULSE 112; RESP 22; TEMP 36.6; O2SAT 99
--- NOTE | 2019-04-25 23:29 | DI.RAD.S_ITS ---
PROCEDURE: XR CHEST 1V INDICATIONS: seizure, possible swallow dentures TECHNIQUE: One view of the chest was acquired. COMPARISON: [facility], CR, XR CHEST 1V, 02/04/2019, 13:37. [facility], CR, XR CHEST 1V, 01/16/2019, 20:57. FINDINGS: Surgical changes and devices: None. Lungs and pleura: Lungs are clear. No pleural effusions or pneumothorax. Mediastinum: Mediastinal contours appear normal. Heart size is normal. Bones and chest wall: No suspicious bony lesions. Overlying soft tissues appear unremarkable. IMPRESSION: Normal for age, source of current postictal symptoms is not seen. No aspirated or ingested denture devices seen through the chest and visualized upper abdomen. The mid and lower abdomen are not included. Dictated by: Kurt Johnson M.D. on 04/26/2019 at 8:52 Approved by: Kurt Johnson M.D. on 04/26/2019 at 8:53
--- NOTE | 2019-04-25 23:32 | ED.SEIZURE ---
HPI - Seizure General Chief Complaint: Seizure Stated Complaint: had 7 seizures Time Seen by Provider: 04/25/19 23:27 Source: other (friend) Mode of arrival: Wheelchair Limitations: altered mental status History of Present Illness HPI Narrative: Patient is a 24-year-old female with history of epilepsy presenting after a seizure. Friend the boyfriend heard her fall in the bathroom saw her stiffen up 30 minutes prior to arrival she was unresponsive. She actually is missing her dentures which she was wearing in the past when she has had a seizure she is actually swallowed her dentures. No airway compromise appreciated at this time. She is able to follow some commands. Patient started to come around she states that she has not taken her Keppra all day today. She did take it yesterday she just forgot today. Related Data Home Medications Medication Instructions Recorded Confirmed ibuprofen 1 dose PO PRN PRN 02/04/19 02/04/19 lamotrigine [Lamictal] 100 mg PO DAILY 04/26/19 04/26/19 levetiracetam 750 mg PO Q12H 04/26/19 04/26/19 Allergies Allergy/AdvReac Type Severity Reaction Status Date / Time No Known Drug Allergies Allergy Verified 01/16/19 20:49 Review of Systems Review of Systems Narrative: post ictal ROS Unobtainable: Unobtainable due to medical condition Patient History Medical History Medical History Acute metabolic encephalopathy (Acute) Anemia (Acute) Epilepsy (Acute) Hypokalemia (Acute) 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) Social History Social History household members: family Smoking Status: Former smoker alcohol intake: current alcohol intake frequency: a few times a week Substance Use Type: marijuana Exam Initial Vital Signs Initial Vital Signs: Vital Signs Temperature 97.8 F 04/25/19 23:27 Pulse Rate 112 H 04/25/19 23:27 Respiratory Rate 22 04/25/19 23:27 Blood Pressure 107/50 L 04/25/19 23:27 Pulse Oximetry 99 04/25/19 23:27 GENERAL: Postictal confused but able to follow some commands HEENT: Head atraumatic no depressions crepitations or laceration,EOMI, pupils reactive, face symmetric CARDIOVASCULAR: Regular rate and rhythm without murmurs, rubs or gallops. RESPIRATORY: Breath sounds equal bilaterally, no wheezes rales or rhonchi. ABDOMEN: Soft, nontender. Normoactive bowel sounds all 4 quadrants. No guarding or rebound. EXTREMITIES: Normal range of motion, no clubbing or edema. 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 Course Orders Ordered: ED Orders 04/25/19 23:29 XR chest 1V Stat Urine Drug Screen, Rapid Stat 04/25/19 23:59 Basic Metabolic Panel Stat Complete Blood Count AUTO DIFF Stat Magnesium Stat Prolactin Stat 04/26/19 00:18 Urine Microscopic Stat 04/26/19 01:05 CT chest wo con Stat Lactated Ringer's (Lactated Ringers) 1,000 mls @ 42 mls/hr IV CONT FATEMEH Discontinued Medications Sodium Chloride (Normal Saline 0.9%) 1,000 mls @ 1,000 mls/hr IV BOLUS ONE Stop: 04/26/19 00:28 Last Infusion: 04/26/19 01:20 Dose: 0 mls/hr Documented by: Admin: 04/26/19 00:15 Dose: 1,000 mls/hr Documented by: ROBBI Levetiracetam 1,000 mg/ Sodium (Chloride) 110 mls @ 440 mls/hr IV NOW ONE Stop: 04/26/19 00:32 Last Infusion: 04/26/19 02:00 Dose: 0 mls/hr Documented by: Admin: 04/26/19 01:41 Dose: 440 mls/hr Documented by: ROBBI Consultations Time: 03:15 Vital Signs Vital signs: Vital Signs - 8 hr 04/25/19 23:27 04/26/19 00:25 04/26/19 01:30 Temperature 97.8 F Pulse Rate 112 H 89 85 Respiratory Rate 22 22 18 Blood Pressure 107/50 L Blood Pressure [Right Arm] 101/56 L 104/65 Pulse Oximetry 99 100 100 04/26/19 02:31 04/26/19 03:00 04/26/19 03:30 Temperature Pulse Rate 74 75 71 Respiratory Rate 18 17 18 Blood Pressure Blood Pressure [Right Arm] 110/69 98/51 L 95/50 L Pulse Oximetry 100 98 97 04/26/19 04:00 Temperature Pulse Rate 82 Respiratory Rate 18 Blood Pressure Blood Pressure [Right Arm] 107/67 Pulse Oximetry 100 MDM - Seizure Lab Data Attestation: I reviewed the patient's lab results. Result diagrams: 04/25/19 23:59 04/25/19 23:59 Labs: Lab Results 04/25/19 04/25/19 04/26/19 Range/Units 23:59 23:59 00:18 WBC 14.0 H (4.5-11.0) X10^3/uL RBC 4.68 (4.0-5.2) X10^6/uL Hgb 12.5 (12.0-16.0) g/dL Hct 38.4 (36-46) % MCV 82.0 (80-100) fL MCH 26.7 (26-34) PG MCHC 32.5 (30-36) % RDW 15.1 H (11.6-14.8) % Plt Count 279 (150-400) X10^3/uL Neut % (Auto) 87.7 H (50-75) % Lymph % (Auto) 6.7 L (25-40) % [place] % (Auto) 4.6 (3-14) % Eos % (Auto) 0.5 L (2-4) % Baso % (Auto) 0.5 (0-2) % Neut # (Auto) 21155 H (6681-6084) /uL Lymph # (Auto) 900 L (0348-8182) /uL [place] # (Auto) 600 (0-900) /uL Eos # (Auto) 100 (0-450) /uL Baso # (Auto) 100 (0-100) /uL Sodium 143 (137-145) mmol/L Potassium 4.4 (3.4-5.1) mmol/L Chloride 108 H (98-107) mmol/L Carbon Dioxide 18 L (22-32) mmol/L BUN 10 (7-17) mg/dL Creatinine 0.80 (0.52-1.04) mg/dL Estimated GFR > 60.0 (>60) mL/min BUN/Creatinine Ratio 12.5 (6-22) Glucose 100 (70-100) mg/dL Calcium 9.4 (8.4-10.2) mg/dL Magnesium 2.4 H (1.6-2.3) mg/dL Prolactin 54.4 H (3.0-18.6) ng/mL Urine RBC (0-5/HPF) Urine WBC (0-5/HPF) Urine Bacteria (None) Ur Culture Indicated? U Morph 300 ng/mL cutoff Negative (Negative) Ur Oxycodone Screen Negative (Negative) Urine Methadone Screen Negative (Negative) Ur Barbiturates Screen Negative (Negative) U Tricyclic Antidepress Negative (Negative) Ur Phencyclidine Scrn Negative (Negative) Ur Amphetamines Screen Negative (Negative) U Methamphetamines Scrn Negative (Negative) Ur MDMA Scrn (Ecstasy) Negative (Negative) U Benzodiazepines Scrn Negative (Negative) Urine Cocaine Screen Negative (Negative) U Marijuana (THC) Screen Negative (Negative) 04/26/19 Range/Units 00:18 WBC (4.5-11.0) X10^3/uL RBC (4.0-5.2) X10^6/uL Hgb (12.0-16.0) g/dL Hct (36-46) % MCV (80-100) fL MCH (26-34) PG MCHC (30-36) % RDW (11.6-14.8) % Plt Count (150-400) X10^3/uL Neut % (Auto) (50-75) % Lymph % (Auto) (25-40) % [place] % (Auto) (3-14) % Eos % (Auto) (2-4) % Baso % (Auto) (0-2) % Neut # (Auto) (8392-0166) /uL Lymph # (Auto) (6513-2162) /uL [place] # (Auto) (0-900) /uL Eos # (Auto) (0-450) /uL Baso # (Auto) (0-100) /uL Sodium (137-145) mmol/L Potassium (3.4-5.1) mmol/L Chloride (98-107) mmol/L Carbon Dioxide (22-32) mmol/L BUN (7-17) mg/dL Creatinine (0.52-1.04) mg/dL Estimated GFR (>60) mL/min BUN/Creatinine Ratio (6-22) Glucose (70-100) mg/dL Calcium (8.4-10.2) mg/dL Magnesium (1.6-2.3) mg/dL Prolactin (3.0-18.6) ng/mL Urine RBC 1-5/hpf (0-5/HPF) Urine WBC None seen (0-5/HPF) Urine Bacteria None seen (None) Ur Culture Indicated? Cult not indicated U Morph 300 ng/mL cutoff (Negative) Ur Oxycodone Screen (Negative) Urine Methadone Screen (Negative) Ur Barbiturates Screen (Negative) U Tricyclic Antidepress (Negative) Ur Phencyclidine Scrn (Negative) Ur Amphetamines Screen (Negative) U Methamphetamines Scrn (Negative) Ur MDMA Scrn (Ecstasy) (Negative) U Benzodiazepines Scrn (Negative) Urine Cocaine Screen (Negative) U Marijuana (THC) Screen (Negative) Point of Care Testing Test Results Negative Glucose POC 95 Urine Dip Bedside Urine Glucose Negative Bedside Urine Bilirubin - Negative Bedside Urine Ketone +/- 5 Urine Specific [place] 1.030 Bedside Urine Occult Blood +++ Bedside Urine pH 5.0 Bedside Urine Protein + 30 Bedside Urine Urobilinogen - Negative Bedside Urine Nitrite - Negative Bedside Urine Leukocytes - Negative Esterase Imaging Data Chest x-ray: Attestation: I personally reviewed and interpreted this imaging study as follows: My impression: no FB CT scan - chest: 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 No radiopaque foreign body. 2. Hyperdense separations are noted within the upper soft he has. This was noted previously. Direct comparison is difficult given that the upper esophagus is is under distended in both studies. No pneumothorax or pleural effusion. Addendum the radiopaque foreign body in her thoracic esophagus measures 2.8 cm in length and is consistent with swallowed partial denture its location is essentially the same as in the previous study performed 3 months ago MDM Narrative Medical decision making narrative: Patient has pain in her chest, x-ray does not show any foreign body however dentures are plastic they did not show up on previous x-ray. CT chest is done. CT of the chest shows hyperdense septations in the upper esophagus which was noted previously no obvious foreign body. Patient has pain with swallowing and continues to have pain in her chest. Clinically has symptoms of possibly swallowed dentures. I have called Radiology and discussed with them, 2nd radiologist states that there is actually foreign body noted in the upper thoracic esophagus. Dr. Clay comes surgery has been notified and on his way in, will go for EGD. Discharge Plan Departure Patient Disposition: Admitted as Observation Clinical Impression: Esophageal foreign body Qualifiers: Encounter type: initial encounter Qualified Code(s): T18.108A - Unspecified foreign body in esophagus causing other injury, initial encounter Discharge Date/Time: 04/26/19 04:14 Admit Date/Time: 04/26/19 04:10 Admit Provider: Hawk Clay
[2019-04-26] VITALS (14 sets, daily range): BP systolic 86–110; BP diastolic 50–73; PULSE 70–94; RESP 16–22; TEMP 36.3–36.7; O2SAT 94–100
[2019-04-26 00:12] LABS: Add Manual Diff / Slide Review NO; Basophils Absolute Auto 100 /uL (0-100); Basophils Percent Auto 0.5 % (0-2); Eosinophils Absolute Auto 100 /uL (0-450); Eosinophils Percent Auto 0.5 % (2-4); Hematocrit 38.4 % (36-46); Hemoglobin 12.5 g/dL (12.0-16.0); Lymphocytes Absolute Auto 900 /uL (1100-4500); Lymphocytes Percent Auto 6.7 % (25-40); Mean Corpuscular HGB Conc 32.5 % (30-36); Mean Corpuscular Hemoglobin 26.7 PG (26-34); Monocytes Absolute Auto 600 /uL (0-900); Monocytes Percent Auto 4.6 % (3-14); Neutrophils Absolute Auto 12200 /uL (1500-7000); Neutrophils Percent Auto 87.7 % (50-75); Platelet Count 279 X10^3/uL (150-400); Red Blood Cell Count 4.68 X10^6/uL (4.0-5.2); Red Cell Distribution Width 15.1 % (11.6-14.8)
[2019-04-26] MEDS: SODIUM CHLORIDE 0.9% 1,000 ML 1000 ML IV (00:15)
[2019-04-26 00:24] LABS: BUN Creatinine Ratio 12.5 (6-22); Blood Urea Nitrogen 10 mg/dL (7-17); Calcium 9.4 mg/dL (8.4-10.2); Carbon Dioxide 18 mmol/L (22-32); Chloride 108 mmol/L (98-107); Estimated Glomerular Filt Rate > 60.0 mL/min (>60); Glucose 100 mg/dL (70-100); HEMOLYSIS < 15 (0-50); Magnesium 2.4 mg/dL (1.6-2.3); Potassium 4.4 mmol/L (3.4-5.1); Sodium 143 mmol/L (137-145)
[2019-04-26 00:36] LABS: Bacteria Urine None Seen; WBC Urine None Seen (0-5/HPF)
[2019-04-26 00:41] LABS: Prolactin 54.4 ng/mL (3.0-18.6)
[2019-04-26 00:45] LABS: UR Morphine/Opiate cutoff 300 Negative (Negative); Ur Creatinine 20 (Normal); Ur Specific Gravity 1.025 (Normal); Urine Amphetamines Negative (Negative); Urine Barbiturates Negative (Negative); Urine Benzodiazepines Negative (Negative); Urine Cocaine Negative (Negative); Urine MDMA Negative (Negative); Urine Methadone Negative (Negative); Urine Methamphetamines Negative (Negative); Urine Oxycodone Negative (Negative); Urine Phencyclidine Negative (Negative); Urine Tetrahydrocannabinol Negative (Negative); Urine Tricyclic Antidepressant Negative (Negative); Urine pH 4 (Normal)
[2019-04-26 00:54] LABS: Culture Indicated Urine Cult Not Indicated; RBC Urine 1-5/HPF (0-5/HPF)
--- NOTE | 2019-04-26 01:05 | DI.CT.S_ITS ---
PROCEDURE: CT CHEST WO CON INDICATIONS: denture swallowing/aspiration TECHNIQUE: Noncontrast 5 mm thick sections acquired from the pulmonary apices to the posterior costophrenic angles. 1 mm lung window, 5 mm thick coronal and sagittal and 7 mm axial MIP reformats were then acquired. For radiation dose reduction, the following was used: automated exposure control, adjustment of mA and/or kV according to patient size. COMPARISON: [facility], CT, CT CHEST WO CON, 01/16/2019, 22:15. FINDINGS: Image quality: Excellent. Lungs and pleura: No acute air space opacities. No pleural effusions or pneumothorax. Central and peripheral airways are patent and normal in caliber. Mediastinum: Heart size is normal. No pericardial effusion. No mediastinal adenopathy by size criteria. Thoracic aorta and central pulmonary arteries are normal in size. Esophagus is normal in caliber and is seen to contain a radiodense angular structure similar to that previously present 01/16/19. This presumably is in ingested foreign body in this clinical circumstance (seizure and missing denture device). This device likely is a thin plastic structure, and thus small in size and low in radiodensity.. No hiatal hernia. Bones and chest wall: No suspicious bony lesions. No vertebral body compression fractures. No axillary or supraclavicular adenopathy by size criteria. Thyroid gland appears normal where well visualized. Abdomen: Visualized upper abdominal solid organs and bowel loops appear normal in the absence of contrast. IMPRESSION: No aspirated foreign body found but there is an esophageal angular radiodensity in a similar position to the previous finding at the axial level of the sternal notch, seen centered on series 2 image 11. This presumably is an ingested foreign body and correlation with the prior management of the patient 01/16/19 is recommended given the near identical appearance. The findings were discussed with the emergency room physician currently on duty who reports that in fact this is a small dental device that was retrieved both in January and now again today. Dictated by: Kurt Johnson M.D. on 04/26/2019 at 8:53 Approved by: Kurt Johnson M.D. on 04/26/2019 at 8:54
[2019-04-26] MEDS: levETIRAcetam 1,000 MG in SODIUM CHLORIDE 0.9% 100 ML 440 ML IV (01:41)
--- NOTE | 2019-04-26 04:04 | PM.HP.1 ---
History of Present Illness History of Present Illness Date Patient Seen: 04/26/19 Time Patient Seen: 04:00 Chief complaint: had 7 seizures Narrative: The patient is a 24-year-old woman who in January had an episode of a seizure after not taking meds and swallowed a partial. It was lodged in her upper esophagus. It was retrieved then. This required general anesthesia (the attempt to remove this without general anesthesia failed). Patient had a repeat of this cycle last evening and presented to the emergency room with upper chest pain and the sense of a foreign body. She is found on CT scan to have a foreign body lodged in her upper esophagus and she is being brought for an EGD with the involvement an anesthesiologist. 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) Social History household members: family Smoking Status: Former smoker alcohol intake: current Family & Social History Social History: household members family Tobacco & Substance use: Tobacco type cannabis/marijuana Smoking Status Former smoker alcohol intake current alcohol intake frequency a few times a week Substance Use Type marijuana Meds Home Medications and Allergies Home Medications Medication Instructions Recorded Confirmed Type ibuprofen 1 dose PO PRN PRN 02/04/19 02/04/19 History lamotrigine [Lamictal] 100 mg PO DAILY 04/26/19 04/26/19 History levetiracetam 750 mg PO Q12H 04/26/19 04/26/19 History Allergies Allergy/AdvReac Type Severity Reaction Status Date / Time No Known Drug Allergies Allergy Verified 01/16/19 20:49 Review of Systems Review of Systems ROS Unobtainable: All systems reviewed & are unremarkable except as noted in HPI and below Exam Vital Signs (past 8 hours): - 04/25/19 23:27 04/26/19 00:25 04/26/19 01:30 Temperature 97.8 F Pulse Rate 112 H 89 85 Respiratory Rate 22 22 18 Blood Pressure 107/50 L Blood Pressure [Right Arm] 101/56 L 104/65 Pulse Oximetry 99 100 100 04/26/19 02:31 04/26/19 03:00 04/26/19 03:30 Temperature Pulse Rate 74 75 71 Respiratory Rate 18 17 18 Blood Pressure Blood Pressure [Right Arm] 110/69 98/51 L 95/50 L Pulse Oximetry 100 98 97 Oxygen Delivery Method Room Air Narrative Exam Narrative: Operative no apparent distress. Vitals noted. Eyes are nonicteric. Oral mucosa is dry without open lesions. No palpable masses or nodes or crepitance in the neck. Lungs are clear to auscultation with good air movement. Equal percussion. Heart regular rate and rhythm without murmur gallop. Abdomen is slightly protuberant soft nontender without mass. Patient appears to be alert. A bit sleepy though it is 4 a.m.. Objective Labs Result Diagrams: 04/25/19 23:59 04/25/19 23:59 Labs: Laboratory Results - last 24 hr 04/25/19 04/25/19 04/26/19 23:59 23:59 00:18 WBC 14.0 H RBC 4.68 Hgb 12.5 Hct 38.4 MCV 82.0 MCH 26.7 MCHC 32.5 RDW 15.1 H Plt Count 279 Neut % (Auto) 87.7 H Lymph % (Auto) 6.7 L [place] % (Auto) 4.6 Eos % (Auto) 0.5 L Baso % (Auto) 0.5 Neut # (Auto) 70920 H Lymph # (Auto) 900 L [place] # (Auto) 600 Eos # (Auto) 100 Baso # (Auto) 100 Sodium 143 Potassium 4.4 Chloride 108 H Carbon Dioxide 18 L BUN 10 Creatinine 0.80 Estimated GFR > 60.0 BUN/Creatinine Ratio 12.5 Glucose 100 Calcium 9.4 Magnesium 2.4 H Prolactin 54.4 H Urine RBC Urine WBC Urine Bacteria Ur Culture Indicated? U Morph 300 ng/mL cutoff Negative Ur Oxycodone Screen Negative Urine Methadone Screen Negative Ur Barbiturates Screen Negative U Tricyclic Antidepress Negative Ur Phencyclidine Scrn Negative Ur Amphetamines Screen Negative U Methamphetamines Scrn Negative Ur MDMA Scrn (Ecstasy) Negative U Benzodiazepines Scrn Negative Urine Cocaine Screen Negative U Marijuana (THC) Screen Negative 04/26/19 00:18 WBC RBC Hgb Hct MCV MCH MCHC RDW Plt Count Neut % (Auto) Lymph % (Auto) [place] % (Auto) Eos % (Auto) Baso % (Auto) Neut # (Auto) Lymph # (Auto) [place] # (Auto) Eos # (Auto) Baso # (Auto) Sodium Potassium Chloride Carbon Dioxide BUN Creatinine Estimated GFR BUN/Creatinine Ratio Glucose Calcium Magnesium Prolactin Urine RBC 1-5/hpf Urine WBC None seen Urine Bacteria None seen Ur Culture Indicated? Cult not indicated U Morph 300 ng/mL cutoff Ur Oxycodone Screen Urine Methadone Screen Ur Barbiturates Screen U Tricyclic Antidepress Ur Phencyclidine Scrn Ur Amphetamines Screen U Methamphetamines Scrn Ur MDMA Scrn (Ecstasy) U Benzodiazepines Scrn Urine Cocaine Screen U Marijuana (THC) Screen Assessment & Plan Assessment and plan (1) Postictal psychosis: Current visit: No Status: Suspected (2) Foreign body ingestion: Problem details: Partial denture appears to be lodged in the a for esophagus. Planned to perform an EGD and removed. I have discussed the procedure with the patient including risks of bleeding, perforation of her intestinal tract, damage to her partial, aspiration of her partial. The latter will be alleviated by the involvement of an anesthesiologist. All questions were answered. She appeared to understand and wished to proceed. Qualifiers: Encounter type: initial encounter Qualified Code(s): T18.9XXA - Foreign body of alimentary tract, part unspecified, initial encounter Current visit: No Status: Acute
[2019-04-26] MEDS: LACTATED RINGERS 1,000 ML 42 ML IV (04:15)
--- NOTE | 2019-04-26 04:19 | PM.PREOP ---
Pre-operative Note Interval Note History & Physical reviewed/Exam performed by Physician: Yes Changes to H&P: No
--- NOTE | 2019-04-26 04:52 | SUR.OPER ---
FOREIGN BODY, PARTIAL REMOVED AND RETURNED TO PATIENT
--- NOTE | 2019-04-26 05:00 | PM.OP.ENDO ---
Operative Date/Time/Diagnoses Date of procedure: 04/26/19 Time of procedure: 05:00 Pre-op diagnosis: Foreign body in the esophagus(partial denture) Post-op diagnosis: same Procedure & Clinicians Study performed: Esophagogastroscopy Same procedure as scheduled: Yes Indications: Remove foreign body Surgeon: Hawk Clay Procedure Notes SCOAP/Timeout: Performed Procedure in detail: Patient is placed supine on her stretcher and underwent general endotracheal anesthesia. Scope was inserted but I had difficulty getting into the esophagus of the balloon was deflated so that I could do so. I encountered the foreign body very quickly. I easily snared it only to try to remove it and I could not bring it through the entrance to her esophagus. I met resistance and did not want to force it through. The balloon was completely deflated and then the patient was extubated and still would not come through. I pushed it back down into the esophagus and regrasped but in a different location I was able to bring it through without difficulty. The foreign body was removed and the scope was reinserted and there did not appear to be any thing other than local irritation to the esophagus. I entered the stomach and there was still food within it. I did not do a careful exam as the patient was beginning to become light and there was no reason to pursue further evaluation. The scope was removed and the patient tolerated the procedure well Scope withdrawal time: Not applicable Sedation minutes: 0 (General anesthesia) Findings: other findings (Partial denture removed) Specimen(s): none sent Complications: none Post-procedure Recommendations: Continue medication(s) (Seizure meds. Set a phone call or other alarm daily in order to remind herself of the need to take her medication) Plan for aftercare: As needed Disposition: PACU
--- NOTE | 2019-04-26 05:29 | SUR.PHASEI ---
Dr Clay spoke to pt. When asked how she feels, she stated much better. Declines PO intake. VSS
--- NOTE | 2019-04-26 05:50 | SUR.PHASEII ---
Boyfriend called just as she was coming out of [facility], said that he would notify their ride. They have not yet arrived. Pt mostly sleeping.
--- NOTE | 2019-04-26 05:51 | SUR.PHASEII ---
Kev still in [place], stated that I'm not rushing.
--- NOTE | 2019-04-26 06:24 | SUR.PHASEII ---
Continues to wait for ride, sleeping, arouses easily, no evidence of seizure activity. Resp unlabored, skin warm and dry. Declines PO intake.
--- NOTE | 2019-04-26 06:39 | SUR.PHASEII ---
0635 Pt stable, aroused easily to voice, VSS, resp unlabored, skin warm and dry, no seizure activity noted. Instructions reviewed (ride is not a family/boyfriend, just transportation). Pt. has her valuables and dental appliance.
== END 2019-04-26 06:38 | disposition home or self-care (01) ==
LOC: ED 04-26 04:10 → AC 04-26 04:11
PROVIDERS: Admitting Provider Specialist; Emergency Provider Emergency Medicine; Visit Provider Specialist
PROC: 0DJ08ZZ Inspection of Upper Intestinal Tract, Via Natural or Artificial Opening Endoscopic (ICD-10-PCS; CPT 43235; principal; 2019-04-26 04:40)
DX: T18.9XXA Foreign body of alimentary tract, part unspecified, initial encounter (principal); G40.909 Epilepsy, unspecified, not intractable, without status epilepticus; W19.XXXA Unspecified fall, initial encounter
CPT/HCPCS: 43247; 36415; 71045; 71250; 80048; 80305; 81003; 81015; 81025; 82962; 83735; 84146; 85025; 96361; 96365; 99218; 99284; 99285; G0378; J0330; J1953; J2704; J3010